=== PATIENT | female | born 1945 | race Two or more races ===

== ENCOUNTER 2019-01-23 03:09 | Inpatient (IN) | payer MEDICARE ==
[2019-01-22 20:00] VITALS: BP 153/90
[~2019-01-23] VITALS: Ht 144.8 cm; Wt 58.6 kg
[2019-01-23] VITALS (8 sets, daily range): BP systolic 141–182; BP diastolic 78–112
--- NOTE | 2019-01-23 03:21 | Emergency Room Report ---
History of Present Illness General Chief Complaint: Behavioral Complaint Source: Patient Present Illness HPI This is a 73-year-old female brought in by EMS with chief complaint of bizarre behavior. Was found to be walking in [place] in front of her house. Bystander called 911 because she was acting abnormal. She told him that she was dying. She was not making sense. So they called 911. On arrival, EMS said she was walking away from them. She refuses everything. Later on she started saying that she is sick. EMS said that when they took her house, it was packed with bunch of stuff. Look like a hoarding situation. Here she was actively trying to gag and throw up. She told me that she has herpes all over her body. She does not make sense. According to EMS, they had been on her before for her psychiatric issue. Patient denies taking any medication. No suicidal thoughts homicidal thought. Allergies: Coded Allergies: No Known Allergies (Unverified , 01/23/19) Patient History Past Medical History: see triage record, old chart reviewed, psych hx Past Surgical History: unable to obtain Family History: unable to obtain Social History: other Now: No Immunizations: other Reviewed Nursing Documentation: PMH: Agreed; PSxH: Agreed Review of Systems ENT: Denies: sore throat Cardiovascular: Denies: chest pain, palpitations Gastrointestinal/Abdominal: Denies: nausea, vomiting, diarrhea Musculoskeletal: Denies: back problems Skin: Denies: rash Neurological: Denies: FOWLER, seizures All Other Systems: negative except mentioned in HPI Physical Exam Vital Signs Date Time Temp Pulse Resp B/P (MAP) Pulse Ox O2 Delivery O2 Flow Rate FiO2 01/23/19 02:58 98.8 100 18 182/112 (135) 100 Room Air Vitals with high blood pressure Sp02 EP Interpretation: reviewed, normal General Appearance: alert/responsive, no apparent distress, non-toxic Head: normocephalic, atraumatic Eyes: PERRL, EOMI ENT: oropharynx normal Neck: supple/symm/no masses Respiratory: effort normal, no rhonchi, no wheezing Cardiovascular: no murmur, gallop, rub Gastrointestinal: non-tender, no mass, non-distended, no rebound/guarding, normal bowel sounds Musculoskeletal: gait & station normal Neurologic: oriented x3, sensory intact, motor strength/tone normal Psychiatric: other - Patient with flat affect. She appears to have tangential thoughts. Appear to be responding to internal stimuli. Suicide Risk Assessment: Suicidal Ideation: No Had intent to initiate attempt: No Pt's plan for suicide attempt: No Has means to complete attempt: No Skin: no rash, normal palpation Medical Decision Making Diagnostic Impression: Primary Impression: Behavioral disorder Additional Impressions: Encephalopathy acute Hypertension Qualified Codes: I10 - Essential (primary) hypertension Delirium ER Course This pt presents with altered mental status. I suspect that she has some underlying dementia and also psychiatric disorder. According to EMS, her place is packed with junk look like a hoarder. There is no focal deficit. CT scan here is unremarkable. She does have a urinary tract infection which probably make things worse. Her blood pressure elevated but no evidence of endorgan damage. Will admit for further work-up and social service consult. I contacted Dr. Mccarty for admission for Dr. Avila. Rhythm Strip Diag. Results EP Interpretation: yes Rate: 88 Rhythm: NSR, no PVC's, no ectopy CT/MRI/US Diagnostic Results CT/MRI/US Diagnostic Results : Imaging Test Ordered: Ct head Impression Neg per radiologist. Last Vital Signs Date Time Temp Pulse Resp B/P (MAP) Pulse Ox O2 Delivery O2 Flow Rate FiO2 01/23/19 02:58 98.8 100 18 182/112 (135) 100 Room Air Status: improved Disposition: ADMITTED INPATIENT Condition: Serious Joseph Blake MD Jan 23, 2019 03:21
[2019-01-23 03:44] LABS: BASOPHILS % (AUTO) 0.6 % (0.0-2.0); EOSINOPHILS % (AUTO) 0.6 % (0.0-3.0); HEMATOCRIT 45.3 % (37.0-47.0); HEMOGLOBIN 15.4 G/DL (12.0-16.0); LYMPHOCYTES % (AUTO) 21.4 % (20.0-45.0); MEAN CORPUSCULAR VOLUME 89 FL (80-99); MONOCYTES % (AUTO) 6.3 % (1.0-10.0); NEUTROPHILS % (AUTO) 71.1 % (45.0-75.0); PLATELET COUNT 264 K/UL (150-450); RED CELL DISTRIBUTION WIDTH 11.1 % (11.6-14.8); WHITE BLOOD COUNT 8.6 K/UL (4.8-10.8)
[2019-01-23 03:45] LABS: APPEARANCE,URINE CLOUDY; BILIRUBIN, URINE NEGATIVE (NEGATIVE); GLUCOSE, URINE (UA) NEGATIVE (NEGATIVE); KETONES,URINE 3+ (NEGATIVE); LEUKOCYTE ESTERASE ,URINE 2+ (NEGATIVE); NITRITE,URINE NEGATIVE (NEGATIVE); PH,URINE 5 (4.5-8.0); PROTEIN,URINE 2+ (NEGATIVE); UROBILINOGEN,URINE NORMAL MG/DL (0.0-1.0)
[2019-01-23 03:46] LABS: COLOR,URINE YELLOW
[2019-01-23 03:53] LABS: ANION GAP 11 mmol/L (5-15); BLOOD UREA NITROGEN 20 mg/dL (7-18); CALCIUM 10.5 MG/DL (8.5-10.1); CARBON DIOXIDE 27 MMOL/L (21-32); CHLORIDE 103 MMOL/L (98-107); CREATININE 0.9 MG/DL (0.55-1.30); POTASSIUM 3.5 MMOL/L (3.5-5.1); SODIUM 140 MMOL/L (136-145)
--- NOTE | 2019-01-23 04:12 | NUR ---
ED Nurse Note: PATIENT WAS MIAN [id number] [facility]. NEIGHBOR CALLED 911 BECAUSE PT WAS WALKING IN [place] AND DEMONSTRATING BIZARRE BEHAVIORS. PATIENT PRESENTED ANXIOUS, RESSTLESS, AAO X2, BP 188/112 OTHER VSS AT THIS TIME.
[2019-01-23] MEDS ORDERED: cefTRIAXone 1 GM in NS 55 ML IVPB ONE (05:00)
--- NOTE | 2019-01-23 05:59 | Diagnostic Imaging Report ---
EXAM: CT Head Without Intravenous Contrast CLINICAL HISTORY: AMS TECHNIQUE: Axial computed tomography images of the head brain without intravenous contrast. CTDI is 63 mGy and DLP is 1614 mGy-cm. One or more of the following dose reduction techniques were used: automated exposure control, adjustment of the mA and or kV according to patient size, use of iterative reconstruction technique. COMPARISON: None. FINDINGS: Brain: No acute intracranial hemorrhage. No mass effect or midline shift. No CT evidence of acute infarct. Chronic microangiopathic white matter disease. Ventricles: Unremarkable. No ventriculomegaly. Bones joints: Unremarkable. No acute fracture. Soft tissues: Unremarkable. Sinuses: Unremarkable as visualized. Mastoid air cells: Unremarkable as visualized. No mastoid effusion. IMPRESSION: No acute findings.
--- NOTE | 2019-01-23 06:03 | NUR ---
ED Nurse Note: Patient was admited to [facility] due to ALOC. Patient was transfered to the unit via gurney, with all belongings. AAO x1, VSS at this time, skin is dry warm to touch.
--- NOTE | 2019-01-23 06:15 | NUR ---
NURSE NOTES: Pt is admitted from ER with Dx of Altered Mental Status. Pt is awake, verbal and confused. Vitals stable. BP 159/96. Pt is very impulsive, pt has random thoughts. Pt has moments of clarity however. Pt is ambulatory. Pt's skin is intact, no signs of trauma. Head CT was done in the ER. Pt is oriented to the unit. Pt's belonging list verified, pt signed the sheet and refused to send valuables for safekeeping. Fall precaution In place. Bed alarm on. Bed locked low in position,side rails up and call light within reach. Pt instructed to call for assistance before getting out of bed. Dr. Avila will be called for admission orders. Pt will be monitored.
--- NOTE | 2019-01-23 06:30 | NUR ---
NURSE NOTES: Dr. Avila's exchanged is called and message left with SRI for doctor to call Back.
--- NOTE | 2019-01-23 06:45 | NUR ---
NURSE NOTES: Dr. Pearl called back with admission orders, Md is made aware of High blood pressure. Doctor ordered Norvasc and hydralazine PRN.
[2019-01-23] MEDS ORDERED: HydrALAZINE 25mg tab ORAL PRN (07:00)
--- NOTE | 2019-01-23 07:15 | NUR ---
HAND-OFF: Report given to ALEXANDER Carlin. Informed to carry out the admitting orders. Informed that pt is fall risk.
--- NOTE | 2019-01-23 08:00 | NUR ---
NURSE NOTES: received patient ambulating inside her bedroom. patient is confuse, denies pain or discomfort. LAC gauge 22 IV access, saline locked. Bed is locked at the lowest position possible, call light within easy reach, siderails up x2. Will continue to monitor patient and follow up with the plan of care.
[2019-01-23] MEDS: Heparin 5000 units/ml inj SUBQ SCH ×2 (10:11→22:22)
--- NOTE | 2019-01-23 10:15 | NUR ---
NURSE NOTES: patient went to the room across the hallway, and took 2 books from the patient in that room. patient refuses to return the book. Nurse told patient to go back to her room, and reoriented patient. Returned book to the optometrist president/practice owner.
--- NOTE | 2019-01-23 12:19 | NUR ---
CHARGE NURSE NOTE: Pt is very confused, unsteady,walking around unit, entering other pt's room, stealing some staff. Pt needs a sitter. was called, message left.
--- NOTE | 2019-01-23 13:49 | History and Physical ---
History of Present Illness General Date patient seen: Jan 23, 2019 Time patient seen: 13:00 Reason for Hospitalization: Behavioral Complaint Present Illness HPI 73-year-old female brought in by EMS with chief complaint of bizarre behavior. Was found to be walking in [place] in front of her house per EMS report. Bystander called 911 because she was acting abnormal. ( She told him that she was dying. She was not making sense ) So they called 911. On arrival, EMS said she was walking away from them. She refuses everything. Later on she started saying that she is sick. EMS said that when they took her house, it was packed with bunch of stuff. Look like a hoarding situation. In the ED she was actively trying to gag and throw up. She told the ED MD that she has herpes all over her body. She did not make sense. According to EMS, they had been on her before for her psychiatric issue which is unknown. Patient denies taking any medication. No suicidal thoughts homicidal thought and she was noted to have elevated SBP at 175/88 and abnormal UA with 5-10 wbc. Admission to medical floor was requested and she was started on antibiotics. Today, she was wondering the floors and reported to be taking things from patients rooms. She told me to have Herpes as well and no active blister lesions were seen. She reports smoking marijuana and denies being disoriented or ( too high ) last night. She reports to have a home and was able to tell me her address. When asked about her self care plan she does not have any answer. She denies pain, SI/HI/ nausea or emesis. She ate all her lunch and was noted to be using an IV pole as a cane which was safely removed from her and placed back where it belongs. Allergies: Uncoded Allergies: sulfa (Allergy, Unknown, UKN, 01/23/19) Pt reports allergies to Sulfa; unable to explain. Pt is confused Patient History History Provided By: Patient Healthcare decision maker Resuscitation status Full Code Advanced Directive on File Review of Systems All Other Systems: negative except mentioned in HPI Physical Exam General Appearance: WD/WN Lines, tubes and drains: peripheral HEENT: normocephalic, atraumatic Neck: non-tender, normal alignment Respiratory/Chest: chest wall non-tender, lungs clear Cardiovascular/Chest: normal rate, regular rhythm Abdomen: non tender, soft Extremities: normal range of motion, non-tender Skin Exam: normal pigmentation, other - some hyperpigmented areas on her legs noted. NO BLISTERS or wounds Neurologic: metal mockup maker II-XII grossly normal Last 24 Hour Vital Signs Date Time Temp Pulse Resp B/P (MAP) Pulse Ox O2 Delivery O2 Flow Rate FiO2 01/23/19 12:00 96.2 72 21 141/107 (118) 98 01/23/19 10:08 108 141/87 01/23/19 09:00 Room Air 01/23/19 08:00 96.2 108 21 141/87 (105) 98 01/23/19 06:31 Room Air 01/23/19 06:24 98.0 102 22 159/96 (117) 100 01/23/19 06:02 98.8 88 20 155/78 100 Room Air 01/23/19 05:56 98.8 20 175/88 100 Room Air 01/23/19 04:17 88 175/88 01/23/19 03:15 88 20 Room Air 01/23/19 03:15 98.8 20 182/112 100 Room Air 01/23/19 02:58 98.8 100 18 182/112 (135) 100 Room Air Laboratory Tests Test 01/23/19 03:30 White Blood Count 8.6 K/UL (4.8-10.8) Red Blood Count 5.10 M/UL (4.20-5.40) Hemoglobin 15.4 G/DL (12.0-16.0) Hematocrit 45.3 % (37.0-47.0) Mean Corpuscular Volume 89 FL (80-99) Mean Corpuscular Hemoglobin 30.2 PG (27.0-31.0) Mean Corpuscular Hemoglobin Concent 34.1 G/DL (32.0-36.0) Red Cell Distribution Width 11.1 % (11.6-14.8) L Platelet Count 264 K/UL (150-450) Mean Platelet Volume 5.9 FL (6.5-10.1) L Neutrophils (%) (Auto) 71.1 % (45.0-75.0) Lymphocytes (%) (Auto) 21.4 % (20.0-45.0) Monocytes (%) (Auto) 6.3 % (1.0-10.0) Eosinophils (%) (Auto) 0.6 % (0.0-3.0) Basophils (%) (Auto) 0.6 % (0.0-2.0) Urine Color Yellow Urine Appearance Cloudy Urine pH 5 (4.5-8.0) Urine Specific [place] 1.025 (1.005-1.035) Urine Protein 2+ (NEGATIVE) H Urine Glucose (UA) Negative (NEGATIVE) Urine Ketones 3+ (NEGATIVE) H Urine Blood 1+ (NEGATIVE) H Urine Nitrite Negative (NEGATIVE) Urine Bilirubin Negative (NEGATIVE) Urine Urobilinogen Normal MG/DL (0.0-1.0) Urine Leukocyte Esterase 2+ (NEGATIVE) H Urine RBC 2-4 /HPF (0 - 2) H Urine WBC 5-10 /HPF (0 - 2) H Urine Squamous Epithelial Cells Many /LPF (NONE/OCC) H Urine Bacteria Moderate /HPF (NONE) H Urine Mucus Moderate /LPF (NONE/OCC) H Sodium Level 140 MMOL/L (136-145) Potassium Level 3.5 MMOL/L (3.5-5.1) Chloride Level 103 MMOL/L (98-107) Carbon Dioxide Level 27 MMOL/L (21-32) Anion Gap 11 mmol/L (5-15) Blood Urea Nitrogen 20 mg/dL (7-18) H Creatinine 0.9 MG/DL (0.55-1.30) Estimat Glomerular Filtration Rate mL/min (>60) Glucose Level 143 MG/DL (74-106) H Calcium Level 10.5 MG/DL (8.5-10.1) H Urine Opiates Screen Negative (NEGATIVE) Urine Barbiturates Screen Negative (NEGATIVE) Phencyclidine (PCP) Screen Negative (NEGATIVE) Urine Amphetamines Screen Negative (NEGATIVE) Urine Benzodiazepines Screen Negative (NEGATIVE) Urine Cocaine Screen Negative (NEGATIVE) Urine Marijuana (THC) Screen Positive (NEGATIVE) H Height (Feet): 4 Height (Inches): 9.00 Weight (Pounds): 129 Medications Current Medications Medications (Trade) Dose Ordered Sig/John Route PRN Reason Start Time Stop Time Status Last Admin Dose Admin Amlodipine Besylate (Norvasc) 5 mg DAILY ORAL 01/23/19 09:00 02/22/19 08:59 01/23/19 10:08 Heparin Sodium (Porcine) (Heparin 5000 units/ml) 5,000 units EVERY 12 HOURS SUBQ 01/23/19 09:00 02/22/19 08:59 01/23/19 10:11 Hydralazine HCl (Apresoline) 25 mg Q6H PRN ORAL For High Blood Pressure 01/23/19 07:00 02/22/19 06:59 Assessment/Plan Status: stable Status Narrative 73 y Female who lives alone and was BIBA last night due to erratic behavior noted by her neighbor. # Altered mental status, metabolic vs infectious encephalopathy ddx include delirium vs cannabis intoxication vs underlying psychiatric disorder of unknown etiology vs UTI - Sitter ordered for safety - Psychiatry consultation - PRN Olanzapine # Hypertensive heart disease - Blood pressure management started # UTI - Ceftriaxone therapy - Follow up culture results # Safety and disposition - SW evaluation requested # Substance use - cannabis -SW requested for support and outpatient resources - Counselling completed today. # FULL CODE # DVT ppx - ambulatory # GI ppx with PPI Sadiq Thurston MD Jan 23, 2019 13:49
[2019-01-23] MEDS: OLANZapine 2.5mg tab ORAL PRN (17:31)
--- NOTE | 2019-01-23 19:12 | NUR ---
HAND-OFF: Report given to ALEXANDER Aguilera.
--- NOTE | 2019-01-23 19:15 | NUR ---
NURSE NOTES: RECEIVED PT FROM ALEXANDER CAGE. PT IS AWAKE, AAOX1, ON ROOM AIR, NO ACUTE DISTRESS NOTED. SKIN IS INTACT. IV ON LEFT AC IS INTACT AND PATENT. BED IS LOCKED AND LOW, BED ALARMS ACTIVE, SIDE RAILS UP X2, AND CALL LIGHT IS WITHIN REACH. WILL CONTINUE TO MONITOR.
[2019-01-24] VITALS: BP_SYST 157; BP_SYST 167; BP_DIAS 79
--- NOTE | 2019-01-24 | NUR ---
NURSE NOTES: Confirmed with Pharmacist Dakota that it is okay to give patient's 2200 dose of zyprexa. Addendum: 01/25/19 at 0039 by Bernadette Wilburn RN Wrong time charted
[2019-01-24 04:00] VITALS: BP 154/85
[2019-01-24] MEDS: cefTRIAXone 1gm/D5W 55ml IVPB SCH ×2 (05:57)
[2019-01-24 07:11] LABS: BASOPHILS % (AUTO) 0.6 % (0.0-2.0); HEMATOCRIT 41.4 % (37.0-47.0); HEMOGLOBIN 14.3 G/DL (12.0-16.0); LYMPHOCYTES % (AUTO) 28.1 % (20.0-45.0); MEAN CORPUSCULAR VOLUME 89 FL (80-99); MONOCYTES % (AUTO) 7.7 % (1.0-10.0); NEUTROPHILS % (AUTO) 62.6 % (45.0-75.0); PLATELET COUNT 273 K/UL (150-450); RED BLOOD COUNT 4.65 M/UL (4.20-5.40); RED CELL DISTRIBUTION WIDTH 10.6 % (11.6-14.8); WHITE BLOOD COUNT 7.9 K/UL (4.8-10.8)
--- NOTE | 2019-01-24 07:36 | NUR ---
NURSE NOTES: Patient received in stable condition, eating breakfast. Patient is confused. Breathing unlabored on room air. IV site on left arm patent and intact. Bed locked in lowest position, call light placed within reach. Will continue to monitor.
--- NOTE | 2019-01-24 07:52 | NUR ---
HAND-OFF: Report given to ALEXANDER HIDALGO.
[2019-01-24 07:56] LABS: ANION GAP 9 mmol/L (5-15); BLOOD UREA NITROGEN 25 mg/dL (7-18); CALCIUM 10.9 MG/DL (8.5-10.1); CARBON DIOXIDE 27 MMOL/L (21-32); CHLORIDE 106 MMOL/L (98-107); CREATININE 0.7 MG/DL (0.55-1.30); POTASSIUM 3.4 MMOL/L (3.5-5.1); SODIUM 142 MMOL/L (136-145)
[2019-01-24 08:00] VITALS: BP 157/86
[2019-01-24] MEDS: Heparin 5000 units/ml inj SUBQ SCH ×2 (08:20→21:29)
[2019-01-24 08:52] LABS: ALANINE AMINOTRANSFERASE 19 U/L (12-78); ALKALINE PHOSPHATASE 56 U/L (46-116); ASPARTATE AMINO TRANSFERASE 18 U/L (15-37); BILIRUBIN,DIRECT < 0.1 MG/DL (0.0-0.3); BILIRUBIN,TOTAL 0.5 MG/DL (0.2-1.0)
[2019-01-24 12:00] VITALS: BP 134/82
--- NOTE | 2019-01-24 13:04 | NUR ---
P.T Note: Order received, chart reviewed. Pt cleared for P.T evaluation and mobilization. Pt is alert, oriented to self/person but not to time and place , periodically confused however follows commands appropriately. Pt reports c/o generalized weakness, fatigue and L lower leg pain aggravate by touch/pressure and walking. Pt currently require MOD A X 1 for bed mobilities and transfers and MIN A X 1 for gait/ambulation activities using the FWW. Skilled P.T service is warranted to improve strength, balance and endurance to increase mobility independence and safety during stay. Recommend SNF for further rehab intervention at [place]. Pt is cleared for OOB activities using FWW with nursing assist. Addendum: 01/24/19 at 1317 by FLORENTINO KUMAR PT CORRECTION: THE ABOVE P.T NOTE IS A WRONG ENTRY. PLEASE DISREGARD , THANK YOU.
--- NOTE | 2019-01-24 15:25 | NUR ---
CASE MANAGEMENT: INITIAL REVIEW 73 YR OLD FEMALE BIBA FROM STREET CC: BEHAVIORAL COMPLAINT SI: ACUTE ENCEPHALOPATHY , HTN 98.7 100 18 182/112 100%RA BUN 20; BG 143 IS: ZYPREXA PO X1 IV ZOFRAN X1 IVF NS BOLUS X1 NORVASC PO X1 : 4E [facility]G UNIT DCP: HOME WHEN MEDICALLY CLEARED CASE MANAGEMENT: REVIEW 01/24/19 SI: ACUTE ENCEPHALOPATHY , HTN; UTI 98.2 64 20 157/109 96%RA BUN 25 IS: IV CEFTRIAXONE Q24HR HEPARIN SQ Q12HR K-DUR PO X1 ZYPREXA PO Q8/PRN NORVASC PO QD HYDRALAZINE Q6/PRN : 4E [facility]G UNIT DCP: HOME WHEN MEDICALLY CLEARED
[2019-01-24] MEDS: OLANZapine 2.5mg tab ORAL PRN (15:52)
[2019-01-24] MEDS: LORazepam 1mg tab ORAL PRN (15:52)
[2019-01-24 16:00] VITALS: BP 150/93
--- NOTE | 2019-01-24 18:16 | General Progress Note ---
Assessment/Plan Problem List: (1) Delirium ICD Codes: R41.0 - Disorientation, unspecified SNOMED: 8801734, 918787559 (2) Encephalopathy acute ICD Codes: G93.40 - Encephalopathy, unspecified SNOMED: 08744113, 317686585 (3) Hypertension ICD Codes: I10 - Essential (primary) hypertension SNOMED: 50653174, 928847724 Qualifiers: Qualified Codes: I10 - Essential (primary) hypertension (4) Behavioral disorder SNOMED: 801764093 (5) UTI (urinary tract infection) ICD Codes: N39.0 - Urinary tract infection, site not specified SNOMED: 28290752 Status: stable Assessment/Plan: 73 y Female who lives alone and was BIBA due to erratic behavior noted by her neighbor. # Altered mental status, metabolic vs infectious encephalopathy ddx include delirium vs cannabis intoxication vs underlying psychiatric disorder of unknown etiology vs UTI - Sitter ordered for safety - Psychiatry consultation - PRN Olanzapine -Continue Rocephin 1 g every 24 hours for a total of 3 to 5 days. -Follow-up urine culture # Essential Hypertension -Amlodipine 5 mg p.o. daily -Hydralazine 25 mg p.o. every 6 hours as needed # UTI, improving - Ceftriaxone therapy, plan for 3-5 days depending on clinical improvement - Follow up culture results # Safety and disposition - SW evaluation requested # Substance use - cannabis -SW requested for support and outpatient resources - Counselling completed today. FENPPX DVTPPX: heparin SBQ GI PPX: none needed Fluids: none Diet: regular Lines: peripheral PT/OT: pending Code status: Full Code Dispo: Home vs. SNF Reason for Continued Hospitalization: Encephalopathy 38 minutes spent on this encounter. Discussed with RN, patient, and psychiatry. > 50% spent on counseling and care coordination. Time of note may not reflect time patient was seen. Subjective Date patient seen: Jan 24, 2019 Constitutional: Denies: chills, diaphoresis, fever, malaise, weakness, other HEENT: Denies: eye pain, blurred vision, tearing, double vision, ear pain, ear discharge, nose pain, nose congestion, throat pain, throat swelling, mouth pain , mouth swelling, other Cardiovascular: Denies: chest pain, edema, irregular heart rate, lightheadedness, palpitations, syncope, other Respiratory: Denies: cough, orthopnea, shortness of breath, SOB with excertion , SOB at rest, sputum, stridor, wheezing, other Gastrointestinal/Abdominal: Denies: abdomen distended, abdominal pain, black stools, tarry stools, blood in stool, constipated, diarrhea, difficulty swallowing, nausea, poor appetite, poor fluid intake, rectal bleeding, vomiting , other Genitourinary: Denies: burning, discharge, frequency, flank pain, hematuria, incontinence, pain, urgency, other Neurologic/Psychiatric: Denies: anxiety, depressed, emotional problems, headache, numbness, paresthesia, pre-existing deficit, seizure, tingling, tremors, weakness, other Endocrine: Denies: excessive sweating, flushing, intolerance to cold, intolerance to heat, increased hunger, increased thirst, increased urine, unexplained weight gain, unexplained weight loss, other Hematologic/Lymphatic: Denies: anemia, easy bleeding, easy bruising, other Allergies: Uncoded Allergies: sulfa (Allergy, Unknown, UKN, 01/23/19) Pt reports allergies to Sulfa; unable to explain. Pt is confused Subjective No acute events overnight per nursing. Patient describes seeing flies that talk to her. She continues to be alert and oriented x2. She states that her dysuria has improved. She denies any fevers chills cough chest pain shortness of breath. Continues to state that she has "herpes" all over her body Objective Last 24 Hour Vital Signs Date Time Temp Pulse Resp B/P (MAP) Pulse Ox O2 Delivery O2 Flow Rate FiO2 01/24/19 16:00 97.9 85 20 150/93 (112) 97 01/24/19 12:00 98.1 97 18 134/82 (99) 95 01/24/19 09:00 Room Air 01/24/19 08:18 93 154/85 01/24/19 08:00 96.4 64 20 157/86 (109) 96 01/24/19 04:00 98.2 93 17 154/85 (108) 100 01/24/19 00:00 98.5 103 19 157/79 (105) 96 01/23/19 21:00 Room Air 01/23/19 20:00 97.5 113 20 153/90 (111) 96 01/23/19 19:33 162/86 Intake and Output 10/20/19 10/21/19 19:00 07:00 Intake Total 960 ml 110 ml Balance 960 ml 110 ml Intake Oral 960 ml IV Total 110 ml # Voids 6 2 Laboratory Tests 01/24/19 05:10: White Blood Count 7.9, Red Blood Count 4.65, Hemoglobin 14.3, Hematocrit 41.4, Mean Corpuscular Volume 89, Mean Corpuscular Hemoglobin 30.8, Mean Corpuscular Hemoglobin Concent 34.6, Red Cell Distribution Width 10.6L, Platelet Count 273, Mean Platelet Volume 6.3L, Neutrophils (%) (Auto) 62.6, Lymphocytes (%) (Auto) 28.1, Monocytes (%) (Auto) 7.7, Eosinophils (%) (Auto) 1.0, Basophils (%) (Auto ) 0.6, Sodium Level 142, Potassium Level 3.4L, Chloride Level 106, Carbon Dioxide Level 27, Anion Gap 9, Blood Urea Nitrogen 25H, Creatinine 0.7, Estimat Glomerular Filtration Rate , Glucose Level 115H, Calcium Level 10.9H, Total Bilirubin 0.5, Direct Bilirubin < 0.1, Aspartate Amino Transf (AST/SGOT) 18, Alanine Aminotransferase (ALT/SGPT) 19, Alkaline Phosphatase 56, Total Protein 7.6, Albumin 4.0, Thyroid Stimulating Hormone (TSH) 2.213 Height (Feet): 4 Height (Inches): 9.00 Weight (Pounds): 129 General Appearance: WD/WN, no apparent distress, alert EENT: PERRL/EOMI, normal ENT inspection Neck: non-tender, normal alignment, supple Cardiovascular: normal peripheral pulses, normal rate, no JVD Respiratory/Chest: chest wall non-tender, lungs clear, normal breath sounds Abdomen: normal bowel sounds, non tender, soft, no organomegaly, no mass Extremities: normal range of motion, non-tender, normal inspection Edema: other - No lower extremity edema bilaterally Romel Cortez D.O. Jan 24, 2019 18:16
--- NOTE | 2019-01-24 19:09 | NUR ---
HAND-OFF: Report given to Jareku RN.
--- NOTE | 2019-01-24 19:34 | NUR ---
NURSE NOTES: Received report from ALEXANDER Kern. Patient asleep. Breathing unlabored without distress, discomfort, or sob on room air. No s/s of pain noted at this time. IV noted on left antecubital intact. Bed placed at the lowest with alarm, brake, siderails up for safety. Call light placed within reach. Will continue to monitor.
[2019-01-24 20:00] VITALS: BP 130/68
--- NOTE | 2019-01-24 21:28 | NUR ---
NURSE NOTES: Confirmed with Pharmacist Dakota that it is okay to give patient's 2200 dose of zyprexa.
[2019-01-24] MEDS: OLANZapine 2.5mg tab ORAL SCH (21:30)
[2019-01-25] VITALS: BP 146/61
--- NOTE | 2019-01-25 00:40 | NUR ---
HAND-OFF: Report given to ALEXANDER Armijo.
--- NOTE | 2019-01-25 00:41 | NUR ---
NURSE NOTES: Received report from ALEXANDER Fleming. Patient asleep, respirations unlabored. Bed in low position, locked, side rails up x2, call light within reach. Will continue to monitor.
[2019-01-25 04:00] VITALS: BP 127/74
[2019-01-25] MEDS: OLANZapine 2.5mg tab ORAL SCH ×2 (05:24→14:00)
[2019-01-25] MEDS: cefTRIAXone 1gm/D5W 55ml IVPB SCH ×2 (05:24)
--- NOTE | 2019-01-25 07:20 | NUR ---
HAND-OFF: Report given to ALEXANDER Chen. Patient sleeping.
[2019-01-25 07:27] LABS: EOSINOPHILS % (AUTO) 2.5 % (0.0-3.0); HEMATOCRIT 38.4 % (37.0-47.0); HEMOGLOBIN 12.9 G/DL (12.0-16.0); LYMPHOCYTES % (AUTO) 26.6 % (20.0-45.0); MEAN CORPUSCULAR VOLUME 90 FL (80-99); MONOCYTES % (AUTO) 8.5 % (1.0-10.0); NEUTROPHILS % (AUTO) 61.4 % (45.0-75.0); PLATELET COUNT 207 K/UL (150-450); RED BLOOD COUNT 4.25 M/UL (4.20-5.40); RED CELL DISTRIBUTION WIDTH 11.6 % (11.6-14.8); WHITE BLOOD COUNT 5.6 K/UL (4.8-10.8)
--- NOTE | 2019-01-25 07:32 | NUR ---
NURSE NOTES: Patient sleeping in bed. Breathing even and unlabored on room air. No signs of apparent distress observed. Bed locked in lowest position, call light placed within reach. Will continue to monitor.
[2019-01-25 07:53] LABS: ANION GAP 8 mmol/L (5-15); BLOOD UREA NITROGEN 23 mg/dL (7-18); CALCIUM 10.3 MG/DL (8.5-10.1); CARBON DIOXIDE 28 MMOL/L (21-32); CHLORIDE 107 MMOL/L (98-107); CREATININE 0.7 MG/DL (0.55-1.30); PHOSPHORUS 3.5 MG/DL (2.5-4.9); POTASSIUM 3.7 MMOL/L (3.5-5.1); SODIUM 143 MMOL/L (136-145)
[2019-01-25 08:00] VITALS: BP 142/88
--- NOTE | 2019-01-25 08:30 | Consultation ---
DATE OF CONSULTATION: 01/24/2019 HISTORY OF PRESENT ILLNESS: The patient is a 73-year-old female with a history of multiple medical issues who has been admitted to the hospital due to behavior complaint and altered mental status. The patient is depressed, presents with anhedonia, worthlessness, hopelessness, decreased energy, anxiety, agitation. The patient has been having suicidal thoughts. She stated that she would like to go to a place that was taking care of her for more behavioral issues. The patient has low energy, insomnia, has not been eating. PAST PSYCHIATRIC HISTORY: Depression and anxiety. PAST MEDICAL HISTORY: Significant for hypertension and encephalopathy. ALLERGIES: Sulfa. SUBSTANCE ABUSE HISTORY: No known history of illicit drug use or alcohol; however her urine toxicology came back for marijuana. MENTAL STATUS EXAMINATION: The patient is alert and oriented times self, place, and situation. Mood is agitated. Affect is flat. Thought process, there is a paucity of thought content. Thought content, no suicidal or homicidal ideation. Cognition is intact. Insight and judgment is fair. ASSESSMENT: Sidney I Major depressive disorder. Sidney II Deferred. Sidney III Hypertension. Sidney IV Low. Sidney V 50 PLAN: The patient will be started on Lexapro 10 mg in the morning. HISTORY OF PRESENT ILLNESS: The patient is a 73-year-old female with a history of hypertension who has been admitted to the hospital due to altered mental status. The patient started being confused with bizarre behavior, responding to internal stimuli and easily agitated. She is not able to provide any meaningful information, does not know where she is nor the date. The patient is wandering around the unit and stealing items from different patient's room. PAST PSYCHIATRIC HISTORY: Unknown. The patient is unable to provide any history. PAST MEDICAL HISTORY: Hypertension. ALLERGIES: Sulfa. SUBSTANCE ABUSE HISTORY: Positive for marijuana. MENTAL STATUS EXAMINATION: The patient is alert and oriented times self. She is disoriented and confused, responding to internal stimuli. Mood is agitated. Affect is flat. Thought process is disorganized. Thought content, positive for delusions. Insight and judgment is poor. ASSESSMENT: Sidney I Cannabis abuse rule out cannabis induced psychosis. Acute toxic encephalopathy . Sidney II Deferred. Sidney III Hypertension. UTI. Sidney IV Low. Sidney V 20 PLAN: 1. The patient will be started on Zyprexa 5 mg t.i.d. and Ativan 2 mg p.r.n. 2. The patient to be discharged when medically cleared. Douglas Dsouza M.D. DR: June JOB#: [id number] CC:
[2019-01-25] MEDS: LORazepam 1mg tab ORAL PRN (09:06)
[2019-01-25] MEDS: Heparin 5000 units/ml inj SUBQ SCH ×2 (09:15→21:00)
[2019-01-25] MEDS ORDERED: Acetaminophen 500mg (ES) tab ORAL PRN (11:30)
[2019-01-25 12:00] VITALS: BP 137/66
--- NOTE | 2019-01-25 12:24 | General Progress Note ---
Assessment/Plan Problem List: (1) Delirium ICD Codes: R41.0 - Disorientation, unspecified SNOMED: 6334763, 938471717 (2) Encephalopathy acute ICD Codes: G93.40 - Encephalopathy, unspecified SNOMED: 32278209, 376989902 (3) Hypertension ICD Codes: I10 - Essential (primary) hypertension SNOMED: 16392747, 014874673 Qualifiers: Qualified Codes: I10 - Essential (primary) hypertension (4) Behavioral disorder SNOMED: 994628377 (5) UTI (urinary tract infection) ICD Codes: N39.0 - Urinary tract infection, site not specified SNOMED: 75012563 Status: stable Assessment/Plan: 73 y Female who lives alone and was BIBA due to erratic behavior noted by her neighbor. # Altered mental status, metabolic vs infectious encephalopathy. Suspect possible acute psychiatric disorder ddx include delirium vs cannabis intoxication vs underlying psychiatric disorder of unknown etiology vs UTI - Sitter ordered for safety - Psychiatry consultation - Olanzapine 2.5mg PO Q8hrs - PRN Olanzapine 2.5mg PO Q8hrs for agitation -Continue Rocephin 1 g every 24 hours for a total of 5 days as below # Essential Hypertension, improved -Amlodipine 5 mg p.o. daily -Hydralazine 25 mg p.o. every 6 hours as needed # E. Coli UTI, improving - Ceftriaxone therapy, plan for 5 days depending on clinical improvement - day 2 - Follow up culture results #hypercalcemia - check PTH - check vitamin D 25 OH - continue to monitor - 1L NS over 10hours # Safety and disposition - SW evaluation requested # Substance use - cannabis -SW requested for support and outpatient resources - Counselling completed today. FENPPX DVTPPX: heparin SBQ GI PPX: none needed Fluids: 1L NS over 10 hours Diet: regular Lines: peripheral PT/OT: pending Code status: Full Code Dispo: Home vs. SNF Reason for Continued Hospitalization: Encephalopathy vs. acute psychosis 40 minutes spent on this encounter. Discussed with RN, and patient. > 50% spent on counseling and care coordination. Time of note may not reflect time patient was seen. Subjective Date patient seen: Jan 25, 2019 Constitutional: Denies: chills, diaphoresis, fever, malaise, weakness, other HEENT: Denies: eye pain, blurred vision, tearing, double vision, ear pain, ear discharge, nose pain, nose congestion, throat pain, throat swelling, mouth pain , mouth swelling, other Cardiovascular: Denies: chest pain, edema, irregular heart rate, lightheadedness, palpitations, syncope, other Respiratory: Denies: cough, orthopnea, shortness of breath, SOB with excertion , SOB at rest, sputum, stridor, wheezing, other Gastrointestinal/Abdominal: Denies: abdomen distended, abdominal pain, black stools, tarry stools, blood in stool, constipated, diarrhea, difficulty swallowing, nausea, poor appetite, poor fluid intake, rectal bleeding, vomiting , other Genitourinary: Denies: burning, discharge, frequency, flank pain, hematuria, incontinence, pain, urgency, other Neurologic/Psychiatric: Denies: anxiety, depressed, emotional problems, headache, numbness, paresthesia, pre-existing deficit, seizure, tingling, tremors, weakness, other Endocrine: Denies: excessive sweating, flushing, intolerance to cold, intolerance to heat, increased hunger, increased thirst, increased urine, unexplained weight gain, unexplained weight loss, other Hematologic/Lymphatic: Denies: anemia, easy bleeding, easy bruising, other Allergies: Uncoded Allergies: sulfa (Allergy, Unknown, [facility], 01/23/19) Pt reports allergies to Sulfa; unable to explain. Pt is confused Subjective No acute events overnight per nursing. Patient continues to say that there are flies in the room that are talking to her. She was seen by psychiatry yesterday and started on scheduled Zyprexa. She is more sleepy today. But arousable. She continues to be alert and oriented x2. She states that her dysuria has improved. She denies any fevers chills cough chest pain shortness of breath. Continues to state that she has "herpes" all over her body Objective Last 24 Hour Vital Signs Date Time Temp Pulse Resp B/P (MAP) Pulse Ox O2 Delivery O2 Flow Rate FiO2 01/25/19 09:06 102 142/88 01/25/19 09:00 Room Air 01/25/19 08:00 97.9 102 18 142/88 (106) 98 01/25/19 04:00 98.0 72 18 127/74 (91) 96 01/25/19 00:00 98.0 60 18 146/61 (89) 93 01/24/19 21:00 Room Air 01/24/19 20:00 97.6 75 20 130/68 (88) 96 01/24/19 16:00 97.9 85 20 150/93 (112) 97 Intake and Output 01/24/19 01/25/19 19:00 07:00 Intake Total 850 ml 240 ml Balance 850 ml 240 ml Intake Oral 850 ml 240 ml # Voids 7 4 Laboratory Tests 01/25/19 05:25: White Blood Count 5.6, Red Blood Count 4.25, Hemoglobin 12.9, Hematocrit 38.4, Mean Corpuscular Volume 90, Mean Corpuscular Hemoglobin 30.3, Mean Corpuscular Hemoglobin Concent 33.6, Red Cell Distribution Width 11.6, Platelet Count 207, Mean Platelet Volume 6.3L, Neutrophils (%) (Auto) 61.4, Lymphocytes (%) (Auto) 26.6, Monocytes (%) (Auto) 8.5, Eosinophils (%) (Auto) 2.5, Basophils (%) (Auto ) 1.0, Sodium Level 143, Potassium Level 3.7, Chloride Level 107, Carbon Dioxide Level 28, Anion Gap 8, Blood Urea Nitrogen 23H, Creatinine 0.7, Estimat Glomerular Filtration Rate , Glucose Level 85, Calcium Level 10.3H, Phosphorus Level 3.5, Magnesium Level 1.8, Vitamin D 25-Hydroxy [Pending], 25-Hydroxy Vitamin D2 [Pending], 25-Hydroxy Vitamin D3 [Pending] 01/25/19 05:55: Calcium (Send out) [Pending], Parathyroid Hormone (Intact) [Pending] Height (Feet): 4 Height (Inches): 9.00 Weight (Pounds): 129 General Appearance: WD/WN, no apparent distress, alert, other - Sleepy EENT: PERRL/EOMI, normal ENT inspection Neck: non-tender, normal alignment, supple Cardiovascular: normal peripheral pulses, normal rate, regular rhythm, no JVD Respiratory/Chest: chest wall non-tender, lungs clear, normal breath sounds Abdomen: normal bowel sounds, non tender, soft Extremities: normal range of motion, non-tender, normal inspection Edema: other - No lower extremity edema bilaterally 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 No herpetic lesions seen Romel Cortez D.O. Jan 25, 2019 12:24
--- NOTE | 2019-01-25 14:27 | NUR ---
Social Service Note SW attempted to meet with patient yesterday and again today. Yesterday patient wouldn't respond to questions regarding next of kin or an emergency contact. Patient became slightly agitated but was easily redirected. SW attempted to meet with patient today and patient wouldn't wake up when name was called. SW discussed with charge nurse who will informed SW once patient is awake. SW contacted missing persons and yesterday patient was not reported however today patient was reported missing by her friend Chaim Singh [phone]. SW spoke with Chaim and patient doesn't have family that he is aware of. Chaim has been patient's friend for several years. Chaim lives in [place] and only speaks with patient on the phone on a regular basis. Over the past 8 years Chaim states patient has been hospitalized in a psych facility about 5 times. Chaim is unaware of patient's diagnosis but believes patient might be off her medication and require psychiatric in patient care. Chaim also states patient has been resistant in the past to leaving her home and placement in an assisted living and obtaining caregiver support. Chaim is unaware of financial resources. Patient may require referral to [facility]. At this time due to patient mental status patient appears unsafe to return home. APS report completed [phone] file#[id number].
[2019-01-25] MEDS ORDERED: OLANZapine 2.5mg tab ORAL PRN (15:30)
[2019-01-25 16:00] VITALS: BP 144/91
--- NOTE | 2019-01-25 19:10 | NUR ---
HAND-OFF: Report given to Jareku RN.
--- NOTE | 2019-01-25 19:17 | NUR ---
NURSE NOTES: Received report from ALEXANDER Kern. Patient asleep. Breathing unlabored without distress, discomfort, or sob on room air. No s/s of pain noted at this time. No IV access, MD aware. Call light placed within reach. Will continue to monitor. Addendum: 01/25/19 at 1920 by Bernadette Wilburn RN Bed placed at the lowest with alarm, brake, and siderails up for safety.
[2019-01-25 20:00] VITALS: BP 134/70
--- NOTE | 2019-01-25 21:00 | Progress Note ---
DATE: 01/25/2019 SUBJECTIVE: The patient is doing well. No behavioral issues noted. Doing better on Zyprexa. The patient is confused and disoriented. MENTAL STATUS EXAMINATION: The patient is asleep and arousable. Continues to be confused. Mood is anxious. Affect is flat. Thought process is concrete. Thought content, no suicidal or homicidal ideations. ASSESSMENT: 1. Cannabis abuse. 2. Rule out cannabis-induced psychosis. PLAN: The patient's Zyprexa will be changed from a standing to p.r.n. Douglas Dsouza M.D. DR: GERALD JOB#: [id number] CC:
--- NOTE | 2019-01-25 22:16 | NUR ---
NURSE NOTES: Attempted multiple times to explain and encourage patient to take 2100 medication heparin. Explain the purpose of the medication but patient continued to refuse medication saying "not right now". Will continue to monitor patient.
[2019-01-26] VITALS: BP 121/66
[2019-01-26] MEDS: Cephalexin 500mg cap ORAL SCH ×3 (00:46→20:30)
[2019-01-26] MEDS: LORazepam 1mg tab ORAL PRN ×2 (02:36→09:08)
[2019-01-26 04:00] VITALS: BP 133/70
--- NOTE | 2019-01-26 07:30 | NUR ---
NURSE NOTES: Received pt from MINSU RN. Pt is forgetful and orient x2. pt is in RA, No SOB or acute respiratory distress noted. pt has no IV access, MD ALLEN is aware. Pt is eating breakfast independently. all needs attended, bed is locked and is in the lowest position, call light within easy reach, will continue to monitor.
--- NOTE | 2019-01-26 07:44 | NUR ---
HAND-OFF: Report given to ALEXANDER Gibson.
[2019-01-26 07:56] LABS: BASOPHILS % (AUTO) 1.1 % (0.0-2.0); HEMATOCRIT 38.4 % (37.0-47.0); LYMPHOCYTES % (AUTO) 25.4 % (20.0-45.0); MEAN CORPUSCULAR VOLUME 90 FL (80-99); MONOCYTES % (AUTO) 6.9 % (1.0-10.0); NEUTROPHILS % (AUTO) 63.7 % (45.0-75.0); PLATELET COUNT 198 K/UL (150-450); RED BLOOD COUNT 4.25 M/UL (4.20-5.40); RED CELL DISTRIBUTION WIDTH 11.3 % (11.6-14.8); WHITE BLOOD COUNT 4.4 K/UL (4.8-10.8)
[2019-01-26 08:00] VITALS: BP 127/89
[2019-01-26 08:25] LABS: ALANINE AMINOTRANSFERASE 16 U/L (12-78); ALBUMIN 3.3 G/DL (3.4-5.0); ALKALINE PHOSPHATASE 47 U/L (46-116); ANION GAP 7 mmol/L (5-15); ASPARTATE AMINO TRANSFERASE 13 U/L (15-37); BILIRUBIN,TOTAL 0.5 MG/DL (0.2-1.0); BLOOD UREA NITROGEN 16 mg/dL (7-18); CALCIUM 10.2 MG/DL (8.5-10.1); CARBON DIOXIDE 28 MMOL/L (21-32); CHLORIDE 108 MMOL/L (98-107); CREATININE 0.7 MG/DL (0.55-1.30); POTASSIUM 3.8 MMOL/L (3.5-5.1); SODIUM 143 MMOL/L (136-145)
[2019-01-26] MEDS: Heparin 5000 units/ml inj SUBQ SCH ×2 (09:08→20:36)
--- NOTE | 2019-01-26 11:35 | NUR ---
CASE MANAGEMENT: REVIEW 01/26/19 SI: DELIRIUM; ACUTE ENCEPHALOPATHY , HTN; UTI 98.8 82 18 127/89 97%RA IS: IVF NS @75HR KEFLEX PO BID HEPARIN SQ Q12HR ZYPREXA PO Q8/PRN NORVASC PO QD HYDRALAZINE Q6/PRN : 4E MED SURG UNIT DCP: HOME WHEN MEDICALLY CLEARED
[2019-01-26 12:00] VITALS: BP 137/67
[2019-01-26 16:00] VITALS: BP 148/74
--- NOTE | 2019-01-26 16:04 | NUR ---
Social Service Note Patient's niece called Rere Crawley [phone]. SHIV left a message for niece. SHIV will notify
--- NOTE | 2019-01-26 17:32 | General Progress Note ---
Assessment/Plan Problem List: (1) Delirium ICD Codes: R41.0 - Disorientation, unspecified SNOMED: 8624216, 061442315 (2) Encephalopathy acute ICD Codes: G93.40 - Encephalopathy, unspecified SNOMED: 11333337, 089090394 (3) Hypertension ICD Codes: I10 - Essential (primary) hypertension SNOMED: 17619389, 993529975 Qualifiers: Qualified Codes: I10 - Essential (primary) hypertension (4) Behavioral disorder SNOMED: 489411163 (5) UTI (urinary tract infection) ICD Codes: N39.0 - Urinary tract infection, site not specified SNOMED: 92624682 Status: stable Assessment/Plan: 73 y Female who lives alone and was BIBA due to erratic behavior noted by her neighbor. # Altered mental status, metabolic vs infectious encephalopathy. Suspect possible acute psychiatric disorder. Unable to care for herself ddx include delirium vs cannabis intoxication vs underlying psychiatric disorder of unknown etiology vs UTI - Sitter ordered for safety - Appreciate Psychiatry recommendations: Dr. Dsouza - Olanzapine 2.5mg PO Q8hrs - PRN Olanzapine 2.5mg PO Q8hrs for agitation -Continue Rocephin 1 g every 24 hours for a total of 5 days as below # Essential Hypertension, controlled -Amlodipine 5 mg p.o. daily -Hydralazine 25 mg p.o. every 6 hours as needed # E. Coli UTI, improving - Ceftriaxone therapy, plan for 5 days depending on clinical improvement. Switch to Keflex 500 mg p.o. every 12 hours- day 3 #hypercalcemia > PTH - normal - check vitamin D 25 OH - check PTHRP - continue to monitor -Continue IV fluids -Discussed with nephrology. Recommended calcitonin intranasal daily # Safety and disposition - SW evaluation requested # Substance use - cannabis -SW requested for support and outpatient resources - Counselling completed today. FENPPX DVTPPX: heparin SBQ GI PPX: none needed Fluids: IV fluids Diet: regular Lines: peripheral PT/OT: pending Code status: Full Code Dispo: Home vs. SNF Reason for Continued Hospitalization: Encephalopathy vs. acute psychosis Review and/or order of clinical lab test (1): BMP, CBC tomorrow Review and/or order of tests in radiology section (1): N/A Review and/or order of tests in medicine (1): N/A Discussion of test results with performing physician (1): Decision to obtain old records or obtain history from other than patient (1): yes, per psychologist social patient has a psychiatric history per question with her neighbor. Discussion with another healthcare provider, review of old records, obtained history from other source (2): Nephrology, psychiatry Independent visualization of image tracing or specimen (2): 37 minutes spent on this encounter. Discussed with RN, nephrology, psychiatry, and patient. > 50% spent on counseling and care coordination. Time of note may not reflect time patient was seen. Subjective Date patient seen: Jan 26, 2019 ROS Limited/Unobtainable: Yes - Patient refusing to answer questions. Allergies: Coded Allergies: SULFA (SULFONAMIDE ANTIBIOTICS) (Unverified Allergy, Unknown, 01/26/19) Uncoded Allergies: sulfa (Allergy, Unknown, [facility]N, 01/23/19) Pt reports allergies to Sulfa; unable to explain. Pt is confused Subjective No acute events overnight per nursing. Patient continues to endorse that he hears supplies talking to her and has herpes all over her body . She does feel better overall. She endorses today that she used to take all kinds of psychiatric medications. Does deny SI and HI. Objective Last 24 Hour Vital Signs Date Time Temp Pulse Resp B/P (MAP) Pulse Ox O2 Delivery O2 Flow Rate FiO2 01/26/19 16:00 97.7 84 20 148/74 (98) 96 01/26/19 12:00 98.8 81 19 137/67 (90) 98 01/26/19 09:07 82 127/89 01/26/19 09:00 Room Air 01/26/19 08:00 98.8 82 18 127/89 (102) 97 01/26/19 04:00 98.0 73 18 133/70 (91) 94 01/26/19 00:00 97.8 80 20 121/66 (84) 96 01/25/19 21:00 Room Air 01/25/19 20:00 99.5 81 18 134/70 (91) 98 Intake and Output 01/25/19 01/26/19 19:00 07:00 Intake Total 250 ml 120 ml Balance 250 ml 120 ml Intake Oral 250 ml 120 ml # Voids 5 2 Laboratory Tests 01/26/19 07:30: White Blood Count 4.4L, Red Blood Count 4.25, Hemoglobin 13.0, Hematocrit 38.4, Mean Corpuscular Volume 90, Mean Corpuscular Hemoglobin 30.6, Mean Corpuscular Hemoglobin Concent 33.8, Red Cell Distribution Width 11.3L, Platelet Count 198, Mean Platelet Volume 6.0L, Neutrophils (%) (Auto) 63.7, Lymphocytes (%) (Auto) 25.4, Monocytes (%) (Auto) 6.9, Eosinophils (%) (Auto) 3.0, Basophils (%) (Auto ) 1.1, Sodium Level 143, Potassium Level 3.8, Chloride Level 108H, Carbon Dioxide Level 28, Anion Gap 7, Blood Urea Nitrogen 16, Creatinine 0.7, Estimat Glomerular Filtration Rate , Glucose Level 93, Calcium Level 10.2H, Total Bilirubin 0.5, Aspartate Amino Transf (AST/SGOT) 13L, Alanine Aminotransferase ( ALT/SGPT) 16, Alkaline Phosphatase 47, Total Protein 6.5, Albumin 3.3L, Globulin 3.2, Albumin/Globulin Ratio 1.0, Parathyroid Hormone Related Protein [ Pending] Height (Feet): 4 Height (Inches): 9.00 Weight (Pounds): 129 General Appearance: WD/WN, no apparent distress, alert, other - Sleeping EENT: PERRL/EOMI, normal ENT inspection Neck: non-tender, normal alignment, supple Cardiovascular: normal peripheral pulses, normal rate, regular rhythm, no JVD Respiratory/Chest: chest wall non-tender, lungs clear, normal breath sounds Abdomen: normal bowel sounds, non tender, soft Extremities: other - No lower extremity edema bilaterally Neurologic: shirt maker II-XII grossly normal, no motor/sensory deficits, alert, oriented x 3, other - Tangential thinking Skin: other - No rashes lesions or ulcers seen Romel Cortez D.O. Jan 26, 2019 17:32
--- NOTE | 2019-01-26 19:35 | NUR ---
NURSE NOTES: Report taken from ALEXANDER Gibson. patient is asleep and in bed, arousable to light shaking. A&Ox2, knows who she is and where she is. No signs of distress on room air. No complaints of pain. IV site c/d/i and patent. Patient is high fall risk, rencourgae use of call alvares. Bed in lowest position, call light withn reach.
--- NOTE | 2019-01-26 19:36 | NUR ---
HAND-OFF: Report given to JULIANO MUNOZ.Pt is awake and stable.
[2019-01-26 20:00] VITALS: BP 135/64
[2019-01-27] VITALS: BP 132/68
--- NOTE | 2019-01-27 03:24 | NUR ---
NURSE NOTES: Received pt from [facility] to continue care. AAO x 2, on room air. Ambulatory with unsteady gait. IV site intact and running NS 75cc/hr. No c/o pain, no acute distress noted. Bed locked, alarm on, side rails up x 2, call light within reach. Will continue to monitor.
--- NOTE | 2019-01-27 03:35 | NUR ---
HAND-OFF: Report given to ALEXANDER Tinoco.
[2019-01-27 04:00] VITALS: BP_SYST 123; BP_SYST 143; BP_DIAS 53; BP_DIAS 75
[2019-01-27] MEDS: traMADol 50mg tab ORAL PRN (04:38)
[2019-01-27 07:08] LABS: ANION GAP 6 mmol/L (5-15); BLOOD UREA NITROGEN 12 mg/dL (7-18); CALCIUM 9.9 MG/DL (8.5-10.1); CARBON DIOXIDE 26 MMOL/L (21-32); CHLORIDE 107 MMOL/L (98-107); CREATININE 0.6 MG/DL (0.55-1.30); PHOSPHORUS 2.2 MG/DL (2.5-4.9); POTASSIUM 4.3 MMOL/L (3.5-5.1); SODIUM 139 MMOL/L (136-145)
--- NOTE | 2019-01-27 07:25 | NUR ---
HAND-OFF: Report given to ALEXANDER Gibson.
--- NOTE | 2019-01-27 07:31 | NUR ---
NURSE NOTES: Received pt from BRAYDON MUNOZ. Pt is forgetful and orient x2. pt is in RA, No SOB or acute respiratory distress noted. pt has intact IV access LFA 22G is running well. Pt is eating breakfast independently. all needs attended, bed is locked and is in the lowest position, call light within easy reach, will continue to monitor.
[2019-01-27 08:00] VITALS: BP 143/74
[2019-01-27] MEDS: Heparin 5000 units/ml inj SUBQ SCH ×2 (09:00→21:00)
[2019-01-27] MEDS: LORazepam 1mg tab ORAL PRN ×2 (09:15→17:03)
[2019-01-27] MEDS: Cephalexin 500mg cap ORAL SCH ×2 (09:16→21:00)
[2019-01-27] MEDS ORDERED: Sodium Phosphate 30 MM in NS 275 ML IVPB ONE (11:00)
--- NOTE | 2019-01-27 11:22 | NUR ---
CASE MANAGEMENT: REVIEW 01/27/19 SI: DELIRIUM; ACUTE ENCEPHALOPATHY , HTN; UTI 98.8 71 18 131/87 96%RA URIC ACID 7.8 IS: IVF NS @75HR IV SODIUM PHOSPHATE/ NS X1 KEFLEX PO BID HEPARIN SQ Q12HR ZYPREXA PO Q8/PRN NORVASC PO QD HYDRALAZINE Q6/PRN ATIVAN PO Q6HR/PRN : 4E MED SURG UNIT DCP: HOME WHEN MEDICALLY CLEARED PLAN: PSYC EVAL
[2019-01-27 12:00] VITALS: BP 131/73
--- NOTE | 2019-01-27 12:23 | General Progress Note ---
Assessment/Plan Problem List: (1) Delirium ICD Codes: R41.0 - Disorientation, unspecified SNOMED: 2265859, 951804783 (2) Encephalopathy acute ICD Codes: G93.40 - Encephalopathy, unspecified SNOMED: 52598872, 275663226 (3) Hypertension ICD Codes: I10 - Essential (primary) hypertension SNOMED: 03579422, 243849063 Qualifiers: Qualified Codes: I10 - Essential (primary) hypertension (4) Behavioral disorder SNOMED: 516172568 (5) UTI (urinary tract infection) ICD Codes: N39.0 - Urinary tract infection, site not specified SNOMED: 41047165 Status: stable Assessment/Plan: 73 y Female who lives alone and was BIBA due to erratic behavior noted by her neighbor. # Altered mental status 2/2 acute psychiatry disorder. Suspect possible acute psychiatric disorder. Unable to care for herself #infectious encephalopathy- resolved. . ddx include delirium vs cannabis intoxication vs underlying psychiatric disorder of unknown etiology vs UTI - Appreciate Psychiatry recommendations: Dr. Dsouza - Olanzapine 2.5mg PO Q8hrs - held since 01/25/19. Need clarification from psychaitry whether to continue - PRN Olanzapine 2.5mg PO Q8hrs for agitation - treat UTI as below # Essential Hypertension, controlled -Amlodipine 5 mg p.o. daily -Hydralazine 25 mg p.o. every 6 hours as needed # E. Coli UTI, improving - Ceftriaxone therapy, plan for 5 days depending on clinical improvement. Switch to Keflex 500 mg p.o. every 12 hours- day 4 #hypercalcemia, maybe supplement induced > PTH - normal > It appears that the patient has been going off her psych meds taking an unknown quantity of calcium supplements causing hypercalcemia - check vitamin D 25 OH - check PTHRP - continue to monitor -Continue IV fluids NS @ 50 cc/hr -Discussed with nephrology. Recommended calcitonin intranasal daily # Safety and disposition - SW evaluation requested # Substance use - cannabis -SW requested for support and outpatient resources - Counselling completed today. FENPPX DVTPPX: heparin SBQ GI PPX: none needed Fluids: IV fluids as above Diet: regular Lines: peripheral PT/OT: pending Code status: Full Code Dispo: SNF vs. [facility] Reason for Continued Hospitalization: Acute psychosis. Patient unable to care for herself at home. She does not take her psychiatric medications then takes an unknown quantity of calcium supplements which is extremely dangerous. Needs to be stable on her psychiatric meds before being discharged home. 38 minutes spent on this encounter. Discussed with RN, nephrology, psychiatry, and patient. > 50% spent on counseling and care coordination. Time of note may not reflect time patient was seen. Subjective Date patient seen: Jan 27, 2019 Constitutional: Denies: chills, diaphoresis, fever, malaise, weakness, other HEENT: Denies: eye pain, blurred vision, tearing, double vision, ear pain, ear discharge, nose pain, nose congestion, throat pain, throat swelling, mouth pain , mouth swelling, other Cardiovascular: Denies: chest pain, edema, irregular heart rate, lightheadedness, palpitations, syncope, other Respiratory: Denies: cough, orthopnea, shortness of breath, SOB with excertion , SOB at rest, sputum, stridor, wheezing, other Gastrointestinal/Abdominal: Denies: abdomen distended, abdominal pain, black stools, tarry stools, blood in stool, constipated, diarrhea, difficulty swallowing, nausea, poor appetite, poor fluid intake, rectal bleeding, vomiting , other Genitourinary: Denies: burning, discharge, frequency, flank pain, hematuria, incontinence, pain, urgency, other Neurologic/Psychiatric: Denies: anxiety, depressed, emotional problems, headache, numbness, paresthesia, pre-existing deficit, seizure, tingling, tremors, weakness, other Endocrine: Denies: excessive sweating, flushing, intolerance to cold, intolerance to heat, increased hunger, increased thirst, increased urine, unexplained weight gain, unexplained weight loss, other Hematologic/Lymphatic: Denies: anemia, easy bleeding, easy bruising, other Allergies: Coded Allergies: SULFA (SULFONAMIDE ANTIBIOTICS) (Unverified Allergy, Unknown, 01/26/19) Uncoded Allergies: sulfa (Allergy, Unknown, [facility], 01/23/19) Pt reports allergies to Sulfa; unable to explain. Pt is confused Subjective No acute events overnight per nursing. Patient more alert today. TheShe does feel better overall. She endorses today that she takes a lot of "calcium supplements" at home. Does deny SI and HI. Objective Last 24 Hour Vital Signs Date Time Temp Pulse Resp B/P (MAP) Pulse Ox O2 Delivery O2 Flow Rate FiO2 01/27/19 12:00 97.3 88 19 131/73 (92) 98 01/27/19 09:16 90 143/74 01/27/19 09:00 Room Air 01/27/19 08:00 98.4 90 20 143/74 (97) 97 01/27/19 04:00 98.4 82 17 143/75 (97) 94 01/27/19 00:00 98.6 77 18 132/68 (89) 97 01/26/19 21:00 Room Air 01/26/19 20:00 98.5 82 17 135/64 (87) 96 01/26/19 16:00 97.7 84 20 148/74 (98) 96 Intake and Output 01/26/19 01/27/19 19:00 07:00 Intake Total 1725 ml 300 ml Balance 1725 ml 300 ml Intake Oral 1200 ml IV Total 525 ml 300 ml # Voids 6 5 Laboratory Tests 01/27/19 05:40: Sodium Level 139, Potassium Level 4.3, Chloride Level 107, Carbon Dioxide Level 26, Anion Gap 6, Blood Urea Nitrogen 12, Creatinine 0.6, Estimat Glomerular Filtration Rate , Glucose Level 89, Calcium Level 9.9, Phosphorus Level 2.2L, Magnesium Level 1.8 Height (Feet): 4 Height (Inches): 9.00 Weight (Pounds): 129 General Appearance: WD/WN, no apparent distress, alert EENT: PERRL/EOMI, normal ENT inspection Neck: non-tender, normal alignment, supple Cardiovascular: normal peripheral pulses, normal rate, regular rhythm, no JVD Respiratory/Chest: chest wall non-tender, lungs clear, normal breath sounds Abdomen: normal bowel sounds, non tender, soft, no organomegaly Extremities: normal range of motion, non-tender Edema: other - No lower extremity edema bilaterally Neurologic: provider 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 Jan 27, 2019 12:23
[2019-01-27] MEDS ORDERED: OLANZapine 2.5mg tab ORAL SCH (15:30)
[2019-01-27 16:00] VITALS: BP 130/75
--- NOTE | 2019-01-27 16:00 | NUR ---
NURSE NOTES: pt is very agitate and crying and anxious, Dr WATKINS visited pt and she is notified, she will F/U. will continue to monitor.
--- NOTE | 2019-01-27 19:26 | NUR ---
HAND-OFF: Report given to RN ADRCY. Pt is awake and stable.
--- NOTE | 2019-01-27 19:45 | NUR ---
NURSE NOTES: Pt is in bed,asleep. No acute distress noted. HOB elevated. Pt was given Ativan po for agitation during last shift. NS running at 50ml/hr.Fall precaution in place, bed alarm on. Call light within reach. Bed locked and low. Pt will be monitored.
[2019-01-28] VITALS: BP 130/77
--- NOTE | 2019-01-28 01:27 | NUR ---
NURSE NOTES: Pt is in bed, asleep. No acute distress noted. Vitas stable.RR 16. Fall precaution in place. Pt will be monitored.
[2019-01-28 04:00] VITALS: BP 132/74
--- NOTE | 2019-01-28 04:10 | NUR ---
NURSE NOTES: Pt removed that IV access and now pt refused to have another IV insertion.
--- NOTE | 2019-01-28 06:00 | NUR ---
NURSE NOTES: An IV access established on Left Hand; 24G.
--- NOTE | 2019-01-28 07:08 | NUR ---
NURSE NOTES: Received report from ALEXANDER Mcgee. Patient in bed eating. On room air, no signs of distress or labored breathing. Bed in lowest position with call light in reach. Will continue with plan care.
--- NOTE | 2019-01-28 07:10 | NUR ---
HAND-OFF: Report given to ALEXANDER Rod. Informed that patient is fall risk.
[2019-01-28 08:00] VITALS: BP 144/74
[2019-01-28 08:04] LABS: ALANINE AMINOTRANSFERASE 22 U/L (12-78); ALBUMIN 3.3 G/DL (3.4-5.0); ALKALINE PHOSPHATASE 46 U/L (46-116); ANION GAP 9 mmol/L (5-15); ASPARTATE AMINO TRANSFERASE 13 U/L (15-37); BILIRUBIN,TOTAL 0.2 MG/DL (0.2-1.0); BLOOD UREA NITROGEN 14 mg/dL (7-18); CALCIUM 10.1 MG/DL (8.5-10.1); CARBON DIOXIDE 25 MMOL/L (21-32); CHLORIDE 109 MMOL/L (98-107); CREATININE 0.6 MG/DL (0.55-1.30); POTASSIUM 4.3 MMOL/L (3.5-5.1); SODIUM 143 MMOL/L (136-145)
[2019-01-28] MEDS: Cephalexin 500mg cap ORAL SCH (09:29)
[2019-01-28] MEDS: Heparin 5000 units/ml inj SUBQ SCH ×2 (09:30→21:22)
--- NOTE | 2019-01-28 11:55 | Progress Note ---
DATE: 01/27/2019 SUBJECTIVE: The patient has poor insight into her current medical condition. Still somewhat confused. She is unable to understand, process, or communicate rationally. The patient is responding to internal stimuli. The patient was disoriented to date today. The patient stated that she lives alone and would like to go home and take care of herself. She does not understand that she is currently dependent and unable to care for self. MENTAL STATUS EXAMINATION: Alert and oriented times self and place. Mood is anxious. Affect is constricted, congruent with mood. Thought process is concrete. Thought content, no suicidal or homicidal ideation. ASSESSMENT: 1. Acute encephalopathy. 2. Psychotic disorder. PLAN: 1. Continue the Zyprexa 5 mg at bedtime. 2. The patient lacks capacity to make decision. 3. Recommend to transfer the patient to rehabilitation unit or care home as a temporary basis patient regains her independence. Douglas Dsouza M.D. DR: YAIR JOB#: [id number] CC: AMANDA
[2019-01-28 12:00] VITALS: BP 137/82
--- NOTE | 2019-01-28 12:39 | General Progress Note ---
Assessment/Plan Problem List: (1) Psychotic disorder ICD Codes: F29 - Unspecified psychosis not due to a substance or known physiological condition SNOMED: 72715142 (2) Delirium ICD Codes: R41.0 - Disorientation, unspecified SNOMED: 0255333, 286516089 (3) Encephalopathy acute ICD Codes: G93.40 - Encephalopathy, unspecified SNOMED: 75878745, 739619887 (4) Hypertension ICD Codes: I10 - Essential (primary) hypertension SNOMED: 60378123, 237304725 Qualifiers: Qualified Codes: I10 - Essential (primary) hypertension (5) Behavioral disorder SNOMED: 794457755 (6) UTI (urinary tract infection) ICD Codes: N39.0 - Urinary tract infection, site not specified SNOMED: 45705550 Status: stable Assessment/Plan: 73 y Female who lives alone and was BIBA due to erratic behavior noted by her neighbor. # Altered mental status 2/2 psychotic disorder. Unable to care for herself. Lacks decision-making capacity per psychiatry #infectious encephalopathy- resolved. . ddx include delirium vs cannabis intoxication vs underlying psychiatric disorder of unknown etiology vs UTI - Appreciate Psychiatry recommendations: Dr. Dsouza - Olanzapine 5mg PO QHS - Lacks decision-making capacity -Needs placement at SNF # Essential Hypertension, controlled -Amlodipine 5 mg p.o. daily -Hydralazine 25 mg p.o. every 6 hours as needed # E. Coli UTI, improving - Ceftriaxone therapy, plan for 5 days depending on clinical improvement. Switch to Keflex 500 mg p.o. every 12 hours- day 4 #hypercalcemia, maybe supplement induced - stable > PTH - normal > It appears that the patient has been going off her psych meds taking an unknown quantity of calcium supplements causing hypercalcemia - check vitamin D 25 OH - check PTHRP - continue to monitor -Continue IV fluids NS @ 50 cc/hr -Discussed with nephrology. Recommended calcitonin intranasal daily # Safety and disposition - SW evaluation requested # Substance use - cannabis -SW requested for support and outpatient resources - Counselling completed today. FENPPX DVTPPX: heparin SBQ GI PPX: none needed Fluids: IV fluids as above Diet: regular Lines: peripheral PT/OT: pending Code status: Full Code Dispo: SNF vs. [facility] Reason for Continued Hospitalization: Acute psychosis. Patient unable to care for herself at home. Lacks decision making capacity. She does not take her psychiatric medications then takes an unknown quantity of calcium supplements which is extremely dangerous. Needs placement. 28 minutes spent on this encounter. Discussed with RN, psychiatry, and patient. > 50% spent on counseling and care coordination. Time of note may not reflect time patient was seen. Subjective Date patient seen: Jan 28, 2019 Constitutional: Denies: chills, diaphoresis, fever, malaise, weakness, other HEENT: Denies: eye pain, blurred vision, tearing, double vision, ear pain, ear discharge, nose pain, nose congestion, throat pain, throat swelling, mouth pain , mouth swelling, other Cardiovascular: Denies: chest pain, edema, irregular heart rate, lightheadedness, palpitations, syncope, other Respiratory: Denies: cough, orthopnea, shortness of breath, SOB with excertion , SOB at rest, sputum, stridor, wheezing, other Gastrointestinal/Abdominal: Denies: abdomen distended, abdominal pain, black stools, tarry stools, blood in stool, constipated, diarrhea, difficulty swallowing, nausea, poor appetite, poor fluid intake, rectal bleeding, vomiting , other Genitourinary: Denies: burning, discharge, frequency, flank pain, hematuria, incontinence, pain, urgency, other Neurologic/Psychiatric: Denies: anxiety, depressed, emotional problems, headache, numbness, paresthesia, pre-existing deficit, seizure, tingling, tremors, weakness, other Endocrine: Denies: excessive sweating, flushing, intolerance to cold, intolerance to heat, increased hunger, increased thirst, increased urine, unexplained weight gain, unexplained weight loss, other Hematologic/Lymphatic: Denies: anemia, easy bleeding, easy bruising, other Allergies: Coded Allergies: SULFA (SULFONAMIDE ANTIBIOTICS) (Unverified Allergy, Unknown, 01/26/19) Uncoded Allergies: sulfa (Allergy, Unknown, [facility], 01/23/19) Pt reports allergies to Sulfa; unable to explain. Pt is confused Subjective No acute events overnight per nursing. Patient more alert today. No other complaints. She feels well. Still hears flies. Denies SI/HI. Objective Last 24 Hour Vital Signs Date Time Temp Pulse Resp B/P (MAP) Pulse Ox O2 Delivery O2 Flow Rate FiO2 01/28/19 09:29 91 144/74 10/25/19 04:00 98.4 104 18 132/74 (93) 95 01/28/19 00:00 98.1 74 18 130/77 (94) 96 01/27/19 21:00 Room Air 01/27/19 16:00 98.2 90 18 130/75 (93) 96 Intake and Output 01/27/19 01/28/19 19:00 07:00 Intake Total 1735.0 ml 980 ml Balance 1735.0 ml 980 ml Intake Oral 800 ml 480 ml IV Total 935.0 ml 500 ml # Voids 6 4 Laboratory Tests 01/28/19 05:45: Sodium Level 143, Potassium Level 4.3, Chloride Level 109H, Carbon Dioxide Level 25, Anion Gap 9, Blood Urea Nitrogen 14, Creatinine 0.6, Estimat Glomerular Filtration Rate , Glucose Level 112H, Calcium Level 10.1, Total Bilirubin 0.2, Aspartate Amino Transf (AST/SGOT) 13L, Alanine Aminotransferase ( ALT/SGPT) 22, Alkaline Phosphatase 46, Total Protein 6.6, Albumin 3.3L, Globulin 3.3, Albumin/Globulin Ratio 1.0 Height (Feet): 4 Height (Inches): 9.00 Weight (Pounds): 129 General Appearance: WD/WN, no apparent distress, alert EENT: PERRL/EOMI, normal ENT inspection Neck: non-tender, normal alignment, supple Cardiovascular: normal peripheral pulses, normal rate, regular rhythm, no JVD Respiratory/Chest: chest wall non-tender, lungs clear, normal breath sounds Abdomen: normal bowel sounds, non tender, soft, no organomegaly, no mass Extremities: other - No lower extremity edema bilaterally 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 Jan 28, 2019 12:39
[2019-01-28] MEDS: LORazepam 1mg tab ORAL PRN ×2 (13:50→21:20)
--- NOTE | 2019-01-28 15:51 | NUR ---
DISCHARGE PLANNING DISCHARGE PLAN DISCUSSED WITH DR ALLEN FAXED CLINICALS TO [facility] T: [phone] [facility] T: [phone] [facility] T: [phone] [facility] T: [phone] AWAIT RESPONSE ~ ACCEPTANCE
[2019-01-28 16:00] VITALS: BP 130/78
--- NOTE | 2019-01-28 19:18 | NUR ---
HAND-OFF: Report given to ALEXANDER Mcgee.
[2019-01-28] MEDS ORDERED: LORazepam Inj 2mg/ml 1ml IV PRN (19:30)
--- NOTE | 2019-01-28 19:48 | NUR ---
NURSE NOTES: Pt is in bed,awake and verbal. No acute distress noted. HOB elevated. Pt wants to go home. Fall precaution in place, bed alarm on. Call light within reach. Bed locked and low. Pt asked to call for assistance before getting out of bed. Pt will be monitored.
[2019-01-28 20:00] VITALS: BP 134/80
--- NOTE | 2019-01-29 00:45 | Progress Note ---
DATE: 01/29/2019 SUBJECTIVE: The patient continues to be forgetful, more alert; however, still dependent. The patient would like to be discharged; however, unable to understand process, communicate rationally. The patient is still dependent. Needs medical clerical assistant. The patient is awaiting placement. MENTAL STATUS EXAMINATION: The patient is alert, oriented times self, place. Mood is neutral. Affect is flat. Thought process is concrete. Thought content, no suicidal or homicidal ideations. Cognition is impaired. Insight and judgment is impaired. ASSESSMENT: 1. Cognitive impairment. 2. Acute encephalopathy, resolved. PLAN: 1. Continue the Zyprexa 5 mg at bedtime. 2. The patient will benefit from short-term rehab. Douglas Dsouza M.D. DR: MAIKEL JOB#: [id number] CC:
[2019-01-29 04:00] VITALS: BP 147/84
--- NOTE | 2019-01-29 05:00 | NUR ---
NURSE NOTES: Pt slept well overnight. Pt was calm and cooperative. New IV access established on right hand; 24G. Instructed to not remove IV access.
--- NOTE | 2019-01-29 07:10 | NUR ---
HAND-OFF: Report given to ALEXANDER Rod. Informed pt is fall risk.
--- NOTE | 2019-01-29 07:15 | NUR ---
NURSE NOTES: Received report from ALEXANDER Mcgee. Patient in bed eating breakfast. On room air, no signs of distress or labored breathing. IV intact, patent, and infusing fluids. Bed in lowest position with call light in reach. Will continue with plan of care.
[2019-01-29 08:00] VITALS: BP 140/80
[2019-01-29 08:39] LABS: ANION GAP 10 mmol/L (5-15); BLOOD UREA NITROGEN 16 mg/dL (7-18); CALCIUM 10.7 MG/DL (8.5-10.1); CARBON DIOXIDE 24 MMOL/L (21-32); CHLORIDE 107 MMOL/L (98-107); CREATININE 0.7 MG/DL (0.55-1.30); POTASSIUM 4.3 MMOL/L (3.5-5.1); SODIUM 141 MMOL/L (136-145)
--- NOTE | 2019-01-29 08:44 | General Progress Note ---
Assessment/Plan Status: stable Assessment/Plan: 73 y Female who lives alone and was BIBA due to erratic behavior noted by her neighbor. # Altered mental status 2/2 psychotic disorder. Unable to care for herself. Lacks decision-making capacity per psychiatry #infectious encephalopathy- resolved. . ddx include delirium vs cannabis intoxication vs underlying psychiatric disorder of unknown etiology vs UTI - Appreciate Psychiatry recommendations: Dr. Dsouza - Olanzapine 5mg PO QHS - Lacks decision-making capacity -Needs placement at SNF # Essential Hypertension, controlled -Amlodipine 5 mg p.o. daily -Hydralazine 25 mg p.o. every 6 hours as needed # E. Coli UTI, improving - Ceftriaxone therapy, plan for 5 days depending on clinical improvement. Switch to Keflex 500 mg p.o. every 12 hours- day 4 #hypercalcemia, maybe supplement induced - stable > PTH - normal > It appears that the patient has been going off her psych meds taking an unknown quantity of calcium supplements causing hypercalcemia - check vitamin D 25 OH - check PTHRP - continue to monitor -Continue IV fluids NS @ 50 cc/hr -Discussed with nephrology. Recommended calcitonin intranasal daily. Calcium still elevated after hydration. Dr. Wood to order work up. case d/w him. Continue to monitor serum calcium # Safety and disposition - SW evaluation requested # Substance use - cannabis -SW requested for support and outpatient resources - Counselling completed today. FENPPX DVTPPX: heparin SBQ GI PPX: none needed Fluids: IV fluids as above Diet: regular Lines: peripheral PT/OT: pending Code status: Full Code Dispo: SNF vs. [facility] Reason for Continued Hospitalization: Acute psychosis. Patient unable to care for herself at home. Lacks decision making capacity. She does not take her psychiatric medications then takes an unknown quantity of calcium supplements which is extremely dangerous. Needs placement. 28 minutes spent on this encounter. Discussed with RN, psychiatry, and patient. > 50% spent on counseling and care coordination. Time of note may not reflect time patient was seen. Subjective Date patient seen: Jan 29, 2019 ROS Limited/Unobtainable: No Constitutional: Denies: no symptoms, chills, diaphoresis, fever, malaise, weakness, other HEENT: Denies: no symptoms, eye pain, blurred vision, tearing, double vision, ear pain, ear discharge, nose pain, nose congestion, throat pain, throat swelling, mouth pain, mouth swelling, other Cardiovascular: Denies: no symptoms, chest pain, edema, irregular heart rate, lightheadedness, palpitations, syncope, other Respiratory: Denies: no symptoms, cough, orthopnea, shortness of breath, SOB with excertion, SOB at rest, sputum, stridor, wheezing, other Gastrointestinal/Abdominal: Denies: no symptoms, abdomen distended, abdominal pain, black stools, tarry stools, blood in stool, constipated, diarrhea, difficulty swallowing, nausea, poor appetite, poor fluid intake, rectal bleeding , vomiting, other Genitourinary: Denies: no symptoms, burning, discharge, frequency, flank pain, hematuria, incontinence, pain, urgency, other Neurologic/Psychiatric: Denies: no symptoms, anxiety, depressed, emotional problems, headache, numbness, paresthesia, pre-existing deficit, seizure, tingling, tremors, weakness, other Endocrine: Denies: no symptoms, excessive sweating, flushing, intolerance to cold, intolerance to heat, increased hunger, increased thirst, increased urine, unexplained weight gain, unexplained weight loss, other Hematologic/Lymphatic: Denies: no symptoms, anemia, easy bleeding, easy bruising, other Allergies: Coded Allergies: SULFA (SULFONAMIDE ANTIBIOTICS) (Unverified Allergy, Unknown, 01/26/19) Uncoded Allergies: sulfa (Allergy, Unknown, [facility], 01/23/19) Pt reports allergies to Sulfa; unable to explain. Pt is confused Subjective Seen and examined Wants to be discharged No acute vents overnight Objective Last 24 Hour Vital Signs Date Time Temp Pulse Resp B/P (MAP) Pulse Ox O2 Delivery O2 Flow Rate FiO2 01/29/19 04:00 97.1 78 19 147/84 (105) 98 01/28/19 21:00 Room Air 01/28/19 20:00 98.1 78 19 134/80 (98) 98 01/28/19 16:00 97.9 76 19 130/78 (95) 99 01/28/19 12:00 98.1 97 19 137/82 (100) 99 01/28/19 09:29 91 144/74 01/28/19 09:00 Room Air Intake and Output 01/28/19 01/29/19 19:00 07:00 Intake Total 1500 ml 650 ml Balance 1500 ml 650 ml Intake Oral 1500 ml 600 ml IV Total 50 ml # Voids 4 2 Laboratory Tests 01/28/19 13:50: Ionized Calcium (Measured) 1.23 01/29/19 07:40: Ionized Calcium (Measured) [Pending], Sodium Level 141, Potassium Level 4.3, Chloride Level 107, Carbon Dioxide Level 24, Anion Gap 10, Blood Urea Nitrogen 16, Creatinine 0.7, Estimat Glomerular Filtration Rate , Glucose Level 172H, Calcium Level 10.7H Height (Feet): 4 Height (Inches): 9.00 Weight (Pounds): 129 Objective General Appearance: WD/WN, no apparent distress, alert EENT: PERRL/EOMI, normal ENT inspection Neck: non-tender, normal alignment, supple Cardiovascular: normal peripheral pulses, normal rate, regular rhythm, no JVD Respiratory/Chest: chest wall non-tender, lungs clear, normal breath sounds Abdomen: normal bowel sounds, non tender, soft, no organomegaly, no mass Extremities: other - No lower extremity edema bilaterally Neurologic: director of placement II-XII grossly normal, no motor/sensory deficits, alert, oriented x 3, responsive Skin: normal pigmentation, warm/dry Daniel Tai M.D. Jan 29, 2019 08:44
[2019-01-29] MEDS: Heparin 5000 units/ml inj SUBQ SCH ×2 (09:33→20:40)
[2019-01-29 10:56] LABS: ALANINE AMINOTRANSFERASE 30 U/L (12-78); ALBUMIN 3.7 G/DL (3.4-5.0); ALKALINE PHOSPHATASE 51 U/L (46-116); ASPARTATE AMINO TRANSFERASE 21 U/L (15-37); BILIRUBIN,DIRECT < 0.1 MG/DL (0.0-0.3); BILIRUBIN,TOTAL 0.3 MG/DL (0.2-1.0); PHOSPHORUS 2.7 MG/DL (2.5-4.9)
[2019-01-29 12:00] VITALS: BP 152/90
[2019-01-29] MEDS: traMADol 50mg tab ORAL PRN (13:25)
[2019-01-29 16:00] VITALS: BP 130/84
--- NOTE | 2019-01-29 19:38 | NUR ---
HAND-OFF: Report given to ALEXANDER Pinedo.
--- NOTE | 2019-01-29 19:42 | NUR ---
NURSE NOTES: Patient in bed, alert x 3, with periods of confusion. Kept clean and comfortable. Provided safe environment. Bed in low and locked position. Respiration is even and unlabored. IV site noted, Iv fluid is infusing as ordered. Skin is warm and dry to touch. Abdomen is soft and non distended. No complaint of pain or discomfort noted. call light is at bedside. Will continue plan of care.
[2019-01-29 20:00] VITALS: BP 130/84
--- NOTE | 2019-01-29 23:49 | NUR ---
NURSE NOTES: Patient refused IV fluid, informed the patient regarding medication regiment, still refused. Educated regarding the medication, still refused. Will reassess patient. Patient alert x 3 with periods of confusion.
[2019-01-30] VITALS: BP 135/69
[2019-01-30 04:00] VITALS: BP 134/69
--- NOTE | 2019-01-30 07:13 | NUR ---
NURSE NOTES: Patient refused IV fluid. ALso refused blood draw. Re-
--- NOTE | 2019-01-30 07:14 | NUR ---
NURSE NOTES: Patient refused IV fluid. Attempted to re orient and educate patient, still refused. Patient also blood draw, informed of the risks and benefits.
--- NOTE | 2019-01-30 07:30 | NUR ---
HAND-OFF: Report given to ALEXANDER Mix.
--- NOTE | 2019-01-30 07:31 | NUR ---
NURSE NOTES: Received patient on bed awake. No SOB or cardiac distress. Complaining of sueing the institution for putting IV site on her. IV site intact. Will continue plan of care.
[2019-01-30 08:00] VITALS: BP 153/79
--- NOTE | 2019-01-30 08:07 | NUR ---
NURSE NOTES: IV access hanging on patient's hand, patient pulling it out. RN explained risks and offered to fix it. But patient was agitated and combative and attempted to bite RN, refused to have IV site fixed. Insistent of having IV access removed. RN removed IV access and informed charge nurse.
--- NOTE | 2019-01-30 08:15 | NUR ---
NURSE NOTES: MD informed of patient's refusal for IV access. Awaiting orders.
[2019-01-30] MEDS: Heparin 5000 units/ml inj SUBQ SCH ×2 (09:05→20:44)
--- NOTE | 2019-01-30 10:48 | General Progress Note ---
Assessment/Plan Status: stable Assessment/Plan: 73 y Female who lives alone and was BIBA due to erratic behavior noted by her neighbor. # Altered mental status 2/2 psychotic disorder. Unable to care for herself. Lacks decision-making capacity per psychiatry #infectious encephalopathy- resolved. . ddx include delirium vs cannabis intoxication vs underlying psychiatric disorder of unknown etiology vs UTI - Appreciate Psychiatry recommendations: Dr. Dsouza - Olanzapine 5mg PO QHS - Lacks decision-making capacity -Needs placement at SNF -Psych follow up regarding agitation this weekend. # Essential Hypertension, controlled -Amlodipine 5 mg p.o. daily -Hydralazine 25 mg p.o. every 6 hours as needed # E. Coli UTI, improving - Ceftriaxone therapy, plan for 5 days depending on clinical improvement. Switch to Keflex 500 mg p.o. every 12 hours- day 4 #hypercalcemia, maybe supplement induced - stable > PTH - normal > It appears that the patient has been going off her psych meds taking an unknown quantity of calcium supplements causing hypercalcemia - check vitamin D 25 OH - check PTHRP - continue to monitor -Continue IV fluids NS @ 50 cc/hr -Discussed with nephrology. Recommended calcitonin intranasal daily. Calcium still elevated after hydration. Dr. Wood to order work up. case d/w him. Continue to monitor serum calcium # Safety and disposition - SW evaluation requested # Substance use - cannabis -SW requested for support and outpatient resources - Counselling completed today. FENPPX DVTPPX: heparin SBQ GI PPX: none needed Fluids: IV fluids as above Diet: regular Lines: peripheral PT/OT: pending Code status: Full Code Dispo: SNF vs. [facility] Reason for Continued Hospitalization: Acute psychosis. Patient unable to care for herself at home. Lacks decision making capacity. She does not take her psychiatric medications then takes an unknown quantity of calcium supplements which is extremely dangerous. Needs placement. 28 minutes spent on this encounter. Discussed with RN, psychiatry, and patient. > 50% spent on counseling and care coordination. Time of note may not reflect time patient was seen. Subjective Date patient seen: Jan 30, 2019 ROS Limited/Unobtainable: Yes Allergies: Coded Allergies: SULFA (SULFONAMIDE ANTIBIOTICS) (Unverified Allergy, Unknown, 01/26/19) Uncoded Allergies: sulfa (Allergy, Unknown, UKN, 01/23/19) Pt reports allergies to Sulfa; unable to explain. Pt is confused Subjective Seen and examined Wants to be discharged has been very agitated refusing IV and blood draws Objective Last 24 Hour Vital Signs Date Time Temp Pulse Resp B/P (MAP) Pulse Ox O2 Delivery O2 Flow Rate FiO2 01/30/19 09:02 82 153/79 01/30/19 08:00 97.3 82 20 153/79 (103) 97 01/30/19 04:00 98.2 74 19 134/69 (90) 95 01/30/19 00:00 97.0 70 18 135/69 (91) 98 01/29/19 20:22 Room Air 01/29/19 20:00 97.5 74 18 130/84 (99) 95 01/29/19 16:00 98.1 98 18 130/84 (99) 97 01/29/19 12:00 98.2 98 18 152/90 (110) 96 Intake and Output 01/29/19 01/30/19 19:00 07:00 Intake Total 1250 ml 1400 ml Output Total 1500 ml Balance 1250 ml -100 ml Intake Oral 1200 ml 1200 ml IV Total 50 ml 200 ml Output Urine Total 1500 ml # Voids 6 3 # Bowel Movements 1 1 Laboratory Tests 01/30/19 10:32: Sodium Level [Pending], Potassium Level [Pending], Chloride Level [Pending], Carbon Dioxide Level [Pending], Blood Urea Nitrogen [Pending], Creatinine [ Pending], Estimat Glomerular Filtration Rate [Pending], Glucose Level [Pending] , Calcium Level [Pending], Phosphorus Level [Pending], Magnesium Level [Pending] , Total Bilirubin [Pending], Aspartate Amino Transf (AST/SGOT) [Pending], Alanine Aminotransferase (ALT/SGPT) [Pending], Alkaline Phosphatase [Pending], Total Protein [Pending], Albumin [Pending], Globulin [Pending], Free Thyroxine [ Pending], Free Triiodothyronine [Pending] Height (Feet): 4 Height (Inches): 9.00 Weight (Pounds): 129 Objective General Appearance: WD/WN, no apparent distress, alert EENT: PERRL/EOMI, normal ENT inspection Neck: non-tender, normal alignment, supple Cardiovascular: normal peripheral pulses, normal rate, regular rhythm, no JVD Respiratory/Chest: chest wall non-tender, lungs clear, normal breath sounds Abdomen: normal bowel sounds, non tender, soft, no organomegaly, no mass Extremities: other - No lower extremity edema bilaterally 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 Jan 30, 2019 10:48
[2019-01-30 11:19] LABS: ALANINE AMINOTRANSFERASE 59 U/L (12-78); ALBUMIN 3.6 G/DL (3.4-5.0); ALBUMIN/GLOBULIN RATIO 1.1 (1.0-2.7); ALKALINE PHOSPHATASE 52 U/L (46-116); ANION GAP 7 mmol/L (5-15); ASPARTATE AMINO TRANSFERASE 35 U/L (15-37); BILIRUBIN,TOTAL 0.4 MG/DL (0.2-1.0); BLOOD UREA NITROGEN 16 mg/dL (7-18); CALCIUM 10.1 MG/DL (8.5-10.1); CARBON DIOXIDE 26 MMOL/L (21-32); CHLORIDE 105 MMOL/L (98-107); CREATININE 0.5 MG/DL (0.55-1.30); PHOSPHORUS 3.1 MG/DL (2.5-4.9); POTASSIUM 4.3 MMOL/L (3.5-5.1); SODIUM 138 MMOL/L (136-145)
--- NOTE | 2019-01-30 11:49 | NUR ---
NURSE NOTES: Dr Tai aware that patient refused IV access. Suggests increase in psych meds c/o psych MD.
[2019-01-30 12:00] VITALS: BP 133/83
[2019-01-30 16:00] VITALS: BP 159/80
--- NOTE | 2019-01-30 18:43 | NUR ---
NURSE NOTES: Patient's belongings list have some missing items. Incident report made with Notif Num [id number].
--- NOTE | 2019-01-30 19:27 | NUR ---
HAND-OFF: Report given to
--- NOTE | 2019-01-30 19:56 | NUR ---
NURSE NOTES: Patient in bed, awake, alert x 3 periods of confusion. No complaint of pain or discomfort noted. Respiration is even and unlabored. Abdomen is soft and non distended. No iv site noted. Bed in low and locked position. Skin is intact, warm and dry to touch. Call light is at bedside. Will continue plan of care.
[2019-01-30 20:00] VITALS: BP 144/96
[2019-01-30] MEDS: traMADol 50mg tab ORAL PRN (20:27)
--- NOTE | 2019-01-30 20:44 | NUR ---
NURSE NOTES: Patient refused heparin, educated patient regarding regiment still refused.
[2019-01-31] VITALS: BP 127/66
--- NOTE | 2019-01-31 03:00 | Progress Note ---
DATE: 01/31/2019 SUBJECTIVE: The patient was combative earlier this morning. She is really agitated, responding to internal stimuli, and not manageable. The patient has episodes of confusion. More alert, however, still has poor insight. MENTAL STATUS EXAMINATION: Alert and oriented times self and place. Mood is irritable. Affect is constricted, congruent with mood. Thought process is concrete. Thought content, delusions and hallucinations. Cognition is impairment. Insight and judgment is impaired. ASSESSMENT: 1. not otherwise unspecified. 2. Acute encephalopathy. PLAN: 1. Continue the Zyprexa 5 mg at bedtime. 2. Start the patient on Prozac 20 mg in the morning. 3. Ativan p.r.n. Douglas Dsouza M.D. DR: MARA JOB#: [id number] CC:
[2019-01-31 04:00] VITALS: BP 133/79
--- NOTE | 2019-01-31 07:15 | NUR ---
HAND-OFF: Report given to ALEXANDER Mix.
--- NOTE | 2019-01-31 07:16 | NUR ---
NURSE NOTES: Received patient on bed awake. No SOB or cardiac distress. Complaining of herpes. Will continue plan of care. Addendum: 01/31/19 at 1058 by Maria Del Rosario Duong RN Call light within reach.
[2019-01-31 08:00] VITALS: BP 126/70
[2019-01-31] MEDS: Heparin 5000 units/ml inj SUBQ SCH (09:34)
--- NOTE | 2019-01-31 10:00 | NUR ---
NURSE NOTES: Spoke with Rere hansen. She said she will call patient later this afternoon. Patient made aware. Patient was pleased.
[2019-01-31 11:43] LABS: ANION GAP 7 mmol/L (5-15); BLOOD UREA NITROGEN 21 mg/dL (7-18); CARBON DIOXIDE 27 MMOL/L (21-32); CHLORIDE 104 MMOL/L (98-107); CREATININE 0.6 MG/DL (0.55-1.30); POTASSIUM 4.1 MMOL/L (3.5-5.1); SODIUM 138 MMOL/L (136-145)
[2019-01-31 12:00] VITALS: BP 133/81
[2019-01-31] MEDS ORDERED: FLUOXETINE HCL20 MG ORAL (12:56)
[2019-01-31] MEDS ORDERED: CALCITONIN-SAL3.7 ML NASAL (12:56)
[2019-01-31] MEDS ORDERED: NORVASC5 MG ORAL (12:56)
[2019-01-31] MEDS ORDERED: OLANZAPINE5 MG ORAL (12:56)
--- NOTE | 2019-01-31 13:58 | NUR ---
RD ASSESSMENT & RECOMMENDATIONS SEE CARE ACTIVITY FOR COMPLETE ASSESSMENT DAILY ESTIMATED NEEDS: Needs based on General/ 47kg abw 25-30 kcals/kg 9146-4346 total kcals 0.8-1.0 g protein/kg 38-47 g total protein 25-30 mL/kg 4455-6033 total fluid mLs NUTRITION DIAGNOSIS: Altered nutrition related lab values R/T vit/min deficiencies as evidenced by low mag (1.7), low vit D25 level (27) CURRENT DIET:Cardiac PO DIET RECOMMENDATIONS: LOW NA ADDITIONAL RECOMMENDATIONS: * Monitor lytes, replete as needed (mag 1.7 on 01/30) * Add Vit D3 1000mg Q daily (Vit D25=27) * Standing weight for accurate CBW
[2019-01-31 16:00] VITALS: BP 140/80
--- NOTE | 2019-01-31 16:25 | NUR ---
DISCHARGED PLAN: DISCUSSED DISCHAARGE WITH PATIENT AT BEDSIDE PATIENT HAS BEEN ACCEPTED TO [facility] T:[phone] FOR NURSE TO NURSE REPORT ROOM # 15 [facility] HAS BEEN CALLED PICKUP TIME @1630 [facility] OF TRANSFER LINDA SILVESTRE T:[phone]
--- NOTE | 2019-01-31 16:34 | NUR ---
NURSE NOTES: Dr. Dsouza made aware that patient refuses to be d/c to snf and is agitated and crying. RN called but reached Dr Wisdom's voicemail, left a message.
--- NOTE | 2019-01-31 17:30 | NUR ---
NURSE NOTES: Dr Dsouza with orders to medicate with ativan 2mg IM x 1 time and DC her, said that patient doesn't have capacity to make decisions.
[2019-01-31] MEDS ORDERED: LORazepam Inj 2mg/ml 1ml IM SCH (17:33)
--- NOTE | 2019-01-31 18:29 | NUR ---
NURSE NOTES: Patient discharged in stable condition accompanied by ambulance personnel. Belongings checked with some missing items, incident report already on file. No skin issues noted. Ambulance to transport patient to [facility]. Discharge instructions given, verbalized understanding. No IV access. No ID band upon discharge. Addendum: 01/31/19 at 1835 by Maria Del Rosario Duong RN Patient calm and cooperative at this time. Ativan 2mg IM x 1 time not given.
--- NOTE | 2019-01-31 18:43 | Discharge Summary ---
Discharge Summary Hospital Course Date of Admission Jan 23, 2019 at 04:45 Date of Discharge Admitting Diagnosis Altered mental status,hypertension HPI Tommy Tovar is a 73 year old female who was admitted on Jan 23, 2019 at 04:45 for Altered Mental Status, Hypertension Consultations Psychiatry, nephrology Hospital Course 73 y Female who lives alone and was BIBA due to erratic behavior noted by her neighbor. Patient was treated for urinary tract infection. Urine culture was E. coli. Patient had borderline elevated calcium. Unclear etiology at this time. PTH normal. Vitamin D 27. PTHRP still pending on discharge. Patient treated with IV fluids and calcitonin intranasally which improved calcium level to high normal on discharge. Patient completed 5 days of antibiotics. Despite treatment with antibiotics and calcitonin patient continued to exhibit psychotic behavior including stating that there were "flies talking to her" and herpes all over her body. Psychiatry was consulted who recommended Olanzapine 5mg PO QHS and ativan PRN. Patient stated that the voices decreased in intensity. On discharge the patient still lacks decision-making capacity per psychiatry. Was discharged to shelter facility for continued psychiatric care. Blood pressure was controlled with amlodipine. # Altered mental status 2/2 psychotic disorder. Unable to care for herself. Lacks decision-making capacity per psychiatry. May have had component of hypercalcemia #infectious encephalopathy- resolved. . ddx include delirium vs cannabis intoxication vs underlying psychiatric disorder of unknown etiology vs UTI - Appreciate Psychiatry recommendations: Dr. Dsouza - Olanzapine 5mg PO QHS - Lacks decision-making capacity - Ativan PRN # Essential Hypertension, controlled -Amlodipine 5 mg p.o. daily -Hydralazine 25 mg p.o. every 6 hours as needed # E. Coli UTI, improving - Ceftriaxone therapy, plan for 5 days depending on clinical improvement. Switch to Keflex 500 mg p.o. every 12 hours. Completed 5 days #hypercalcemia, maybe supplement induced - stable > PTH - normal > Vitamin D 25 OH - normal > It appears that the patient has been going off her psych meds taking an unknown quantity of calcium supplements causing hypercalcemia - check vitamin D 25 OH - f/u PTHRP - continue to monitor -Discussed with nephrology. Recommended calcitonin intranasal daily on discharge. # Safety and disposition - SW evaluation requested # Substance use - cannabis -SW requested for support and outpatient resources Physical exam Vitals: Temperature 97.9, pulse 97, respirations 18, blood pressure 133/81 General: WDWN female in NAD, A&O x 4 HEENT: Normocephalic cephalic atraumatic, pupils equal round reactive to light and accommodation, nares patent and no symmetrical, no tonsillar exudates, mucous membranes moist CV: Regular rate regular rhythm, no murmurs, rubs, or gallops Pulm: Lungs clear to auscultation bilaterally. No wheezes, rhonchi, or rales GI: Soft, nontender, nondistended, bowel sounds present Neuro: CN 2-12 intact bilaterally, no focal signs. Ext: No lower extremity edema bilaterally Skin: no rashes lesions or ulcers Msk: Joints symmetrical in upper extremity and lower extremity bilaterally, no joint swelling. Lymph: No lymphadenopathy in upper extremity and lower extremity > 30 minutes spent on this encounter. Discussed with RN, psychiatry, and patient. > 50% spent on counseling and care coordination. Time of note may not reflect time patient was seen. Discharge Condition Upon Discharge: stable Discharge Disposition Patient was discharged to [facility] Discharge Diagnoses: (1) Psychotic disorder (2) UTI (urinary tract infection) (3) Behavioral disorder (4) Hypertension (5) Encephalopathy acute (6) Delirium Romel Cortez D.O. Jan 31, 2019 18:43
== END 2019-01-31 18:50 | DRG 640 ==
LOC: EDBD 03:09 → EMR 04:25 → 4E 04:45 → EDBEDREQ 04:52 → 4E 16:46
DX: E83.52 Hypercalcemia (principal); G93.41 Metabolic encephalopathy; N39.0 Urinary tract infection, site not specified; I11.9 Hypertensive heart disease without heart failure; F28 Other psychotic disorder not due to a substance or known physiological condition; Z88.2 Allergy status to sulfonamides; F12.90 Cannabis use, unspecified, uncomplicated; B96.20 Unspecified Escherichia coli [E. coli] as the cause of diseases classified elsewhere; R41.0 Disorientation, unspecified; Z91.14 Patient's other noncompliance with medication regimen
CPT/HCPCS: 36415; 70450; 80048; 80053; 80076; 80307; 81001; 82306; 82330; 83519; 83735; 83970; 84100; 84439; 84443; 84481; 85025; 87086; 87181; 96361; 96365; 96375; 99285; J2405; J7030; J8499

== ENCOUNTER 2019-08-10 16:13 | Inpatient (IN) | payer MEDICARE ==
[~2019-08-10] VITALS: Ht 144.8 cm; Wt 60.3 kg
[~2019-08-10 16:13] MED LIST: CALCITONIN-SAL3.7 ML NASAL; FLUOXETINE HCL20 MG ORAL; NORVASC5 MG ORAL; OLANZAPINE5 MG ORAL
--- NOTE | 2019-08-10 16:22 | Emergency Room Report ---
History of Present Illness General Chief Complaint: Behavioral Complaint Source: Patient, EMS, Law Enforcement Present Illness HPI Patient is a 74-year-old female past medical history of psychiatric disorder and hypertension who was brought in by EMS and [employer] for bizarre behavior. Patient was seen walking outside and seemed confused. She is alert and oriented x3 and states that she feels anxious. She states that she does not really want to be seen but we have convinced her to come into the ER. She denies any fever or chills she denies any chest pain or shortness of breath. Patient states that she was seen at another hospital yesterday but does not know the name of it. Per prior records patient was seen here for similar complaint. EMS at that time had reported that the patient appeared to be a hoarder within her residence. Today patient keeps talking about somebody who stole her car which is why she is upset and anxious. Allergies: Coded Allergies: SULFA (SULFONAMIDE ANTIBIOTICS) (Unverified Allergy, Unknown, 01/26/19) Uncoded Allergies: sulfa (Allergy, Unknown, UKN, 01/23/19) Pt reports allergies to Sulfa; unable to explain. Pt is confused COVID-19 Screening Contact w/high risk pt: No Recent Travel to affected area: No Experienced COVID-19 symptoms?: No Patient History Last Menstrual Period: n/a Reviewed Nursing Documentation: PMH: Agreed; PSxH: Agreed Nursing Documentation-PMH Past Medical History: No History, Except For Hx Cardiac Problems: No Hx Cancer: No Hx Gastrointestinal Problems: No History Of Psychiatric Problem: Yes Hx Neurological Problems: No Review of Systems All Other Systems: negative except mentioned in HPI Physical Exam Vital Signs Date Time Temp Pulse Resp B/P (MAP) Pulse Ox O2 Delivery O2 Flow Rate FiO2 08/10/19 16:16 98.2 132 18 133/68 (89) 92 Room Air Sp02 EP Interpretation: reviewed - O2 sat 99% on RA , normal General Appearance: other - Poorly groomed in no acute distress Head: normocephalic, atraumatic Eyes: bilateral eye normal inspection, bilateral eye PERRL ENT: hearing grossly normal, normal pharynx, no angioedema, normal voice, dry mucus membranes Neck: full range of motion, supple/symm/no masses Respiratory: chest non-tender, lungs clear, normal breath sounds, speaking full sentences Cardiovascular #1: no edema, tachycardia Gastrointestinal: normal bowel sounds, non tender, soft, non-distended, no guarding, no rebound Rectal: deferred Genitourinary: normal inspection, no CVA tenderness Musculoskeletal: back normal, normal range of motion, gait/station normal, non- tender 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 Patient's d-dimer is mildly elevated. I have ordered for a VQ scan to rule out PE. Patient's labs demonstrate elevated CK to 900 with elevated BUN/creatinine. This is likely secondary to dehydration. Will give 2 L of IV fluids. Patient's UA positive. Prior culture pansensitive. I have ordered for 1 g of Rocephin. Patient will be admitted for further treatment and evaluation. EKG Diagnostic Results EKG Time: 16:21 EP Interpretation: MD Maik Rate: tachycardiac Rhythm: other - sinus tachycardia, RBBB, LAFB ST Segments: no acute changes ASA given to the pt in ED: No Rhythm Strip Diag. Results Rhythm Strip Time: 16:30 EP Interpretation: yes - MD Maik Rate: 114 bpm Rhythm: no PVC's, no ectopy, other - sinus tachycardia Last Vital Signs Date Time Temp Pulse Resp B/P (MAP) Pulse Ox O2 Delivery O2 Flow Rate FiO2 08/10/19 16:16 98.2 132 18 133/68 (89) 92 Room Air Disposition: ADMITTED INPATIENT Condition: Serious Physician Consult: Dr. Palma at 605 pm Veronica Pleitez M.D. August 10, 2019 16:22
[2019-08-10 16:30] VITALS: BP 133/68
[2019-08-10 16:56] LABS: HEMATOCRIT 46.4 % (37.0-47.0); HEMOGLOBIN 14.6 G/DL (12.0-16.0); MEAN CORPUSCULAR VOLUME 92 FL (80-99); PLATELET COUNT 296 K/UL (150-450); RED BLOOD COUNT 5.04 M/UL (4.20-5.40); WHITE BLOOD COUNT 14.2 K/UL (4.8-10.8)
[2019-08-10 17:01] LABS: BASOPHILS % (AUTO) 0.3 % (0.0-2.0); LYMPHOCYTES % (AUTO) 6.5 % (20.0-45.0); MONOCYTES % (AUTO) 7.6 % (1.0-10.0); NEUTROPHILS % (AUTO) 85.6 % (45.0-75.0)
[2019-08-10 17:21] LABS: ANION GAP 20 mmol/L (5-15); BLOOD UREA NITROGEN 42 mg/dL (7-18); CALCIUM 11.6 MG/DL (8.5-10.1); CARBON DIOXIDE 20 MMOL/L (21-32); CHLORIDE 103 MMOL/L (98-107); CREATININE 1.8 MG/DL (0.55-1.30); POTASSIUM 3.5 MMOL/L (3.5-5.1); SODIUM 143 MMOL/L (136-145)
[2019-08-10 17:34] LABS: ALANINE AMINOTRANSFERASE 32 U/L (12-78); ALBUMIN 4.8 G/DL (3.4-5.0); ALBUMIN/GLOBULIN RATIO 1.3 (1.0-2.7); ALKALINE PHOSPHATASE 65 U/L (46-116); ASPARTATE AMINO TRANSFERASE 43 U/L (15-37); BILIRUBIN,TOTAL 1.4 MG/DL (0.2-1.0); CREATINE KINASE 616 U/L (26-308)
[2019-08-10 17:38] LABS: BILIRUBIN,DIRECT 0.6 MG/DL (0.0-0.3)
--- NOTE | 2019-08-10 17:50 | Diagnostic Imaging Report ---
Indication: Chest pain, tachypnea Technique: One view of the chest Comparison: none Findings: The heart is enlarged. The lungs and pleural spaces are clear. There is thoracic scoliotic deformity. Impression: No acute process Cardiomegaly
[2019-08-10 17:55] LABS: APPEARANCE,URINE SLIGHTLY CLOUDY; BILIRUBIN, URINE NEGATIVE (NEGATIVE); GLUCOSE, URINE (UA) NEGATIVE (NEGATIVE); KETONES,URINE 4+ (NEGATIVE); LEUKOCYTE ESTERASE ,URINE 3+ (NEGATIVE); NITRITE,URINE NEGATIVE (NEGATIVE); PH,URINE 6 (4.5-8.0); PROTEIN,URINE 2+ (NEGATIVE); UROBILINOGEN,URINE 1 MG/DL (0.0-1.0)
[2019-08-10 17:56] LABS: COLOR,URINE YELLOW
[2019-08-10 18:06] VITALS: BP 137/71
[2019-08-10] MEDS ORDERED: cefTRIAXone 1 GM in NS 55 ML IVPB ONE (18:15)
[2019-08-10 19:10] VITALS: BP 149/60
[2019-08-10] MEDS: NS w/KCl 20mEq 1000ml 1,000 ML IV SCH (21:57)
[2019-08-10] MEDS: Piperacillin/Tazobactam 3.375 GM in NS 110 ML IVPB SCH (22:26)
[2019-08-10 22:35] VITALS: BP 146/58
[2019-08-10] MEDS ORDERED: LORazepam Inj 2mg/ml 1ml IV ONE (23:15)
[2019-08-11] VITALS (9 sets, daily range): BP systolic 138–158; BP diastolic 60–96
[2019-08-11] MEDS: NS w/KCl 20mEq 1000ml 1,000 ML IV SCH ×2 (03:40→10:20)
--- NOTE | 2019-08-11 04:44 | History and Physical Report ---
DATE OF ADMISSION: 08/10/2019 REASON FOR ADMISSION: Altered mentation. HISTORY OF PRESENT ILLNESS: This 74-year-old female with a known history of psychiatric disorder who was brought at the emergency room by [employer] and paramedics because of bizarre behavior. She apparently was seen walking outside, confused, and anxious. She did not want to be seen initially, but agreed subsequently to come into the emergency room. She did not have any complaints. She denied any problem at home. She apparently has been known to be a hoarder in her own residence. She is convinced that someone stole her car leading to her anxiety and anger today. In the emergency room, a diagnostic workup was undertaken and because of concerns over her psychiatric state, hospitalization initiated. PAST MEDICAL HISTORY: Hypertension, depression with psychosis, history of iatrogenic hypercalcemia. ALLERGIES: Sulfa. MEDICATIONS: Prior to admission include amlodipine, fluoxetine, Zyprexa, and calcitonin. FAMILY HISTORY: Not known. SOCIAL HISTORY: Denies smoking, alcohol, or substance abuse. REVIEW OF SYSTEMS: Cannot be reliably obtained from patient. Review of prior hospitalizations and records was completed x15 minutes and pertinent data outlined above. PHYSICAL EXAMINATION: GENERAL: Awake, alert, cooperative, but confused with very poor insight and judgment. VITAL SIGNS: Blood pressure 133/68, heart rate 132, respirations 18, afebrile, oxygen saturation on room air 92 to 98%. HEENT: Conjunctivae pink. Sclerae are anicteric. Oropharynx clear. Mucous membranes dry. NECK: Supple. Jugular venous pressure normal. No bruits or adenopathy. BREASTS: No breast masses. LUNGS: Clear. CARDIAC: Regular rhythm. Rapid rate. Normal S1, S2 with no murmur. ABDOMEN: Soft, nontender. No masses. EXTREMITIES: Good pulses. No edema. BACK: No CVA tenderness. No paraspinal tenderness. SKIN: Intact. DIAGNOSTIC AND LABORATORY DATA: Chest x-ray, no acute process. Urinalysis with 10 to 15 white cells, 4+ ketones, 1+ blood, and few bacteria. Toxicology screen is negative. ABG 7.35/33/84. White count 14.2, hemoglobin 14.6. Lactic acid 1.6. TSH 1.2. Albumin 4.8. Troponin 0.021. CK 616. Calcium 11.6. BUN 42, creatinine 1.8, bicarb 20, potassium 3.5, chloride 103, sodium 143. IMPRESSION: 1. Toxic encephalopathy. 2. Metabolic encephalopathy. 3. Hypercalcemia. 4. Prerenal azotemia with acute kidney injury. 5. Metabolic acidosis. 6. Depression with anxiety and psychosis. 7. Possible sepsis due to urinary tract infection. 8. Secondary sinus tachycardia. PLAN: 1. IV fluid hydration. 2. Antimicrobials. 3. Psychiatric therapy. 4. Check ionized calcium level. 5. DVT prophylaxis. 6. Adjust antimicrobials once final culture results are available. 7. Follow up laboratory studies including electrolytes. Leonid Palma M.D. DR: MADELYN JOB#: [id number] CC:
[2019-08-11 05:20] LABS: BASOPHILS % (AUTO) 0.6 % (0.0-2.0); EOSINOPHILS % (AUTO) 0.8 % (0.0-3.0); HEMATOCRIT 40.1 % (37.0-47.0); HEMOGLOBIN 13.8 G/DL (12.0-16.0); LYMPHOCYTES % (AUTO) 21.2 % (20.0-45.0); MEAN CORPUSCULAR VOLUME 87 FL (80-99); MONOCYTES % (AUTO) 8.5 % (1.0-10.0); PLATELET COUNT 244 K/UL (150-450); RED BLOOD COUNT 4.62 M/UL (4.20-5.40); RED CELL DISTRIBUTION WIDTH 12.2 % (11.6-14.8); WHITE BLOOD COUNT 11.9 K/UL (4.8-10.8)
[2019-08-11 05:40] LABS: ANION GAP 14 mmol/L (5-15); BLOOD UREA NITROGEN 32 mg/dL (7-18); CALCIUM 10.1 MG/DL (8.5-10.1); CARBON DIOXIDE 25 MMOL/L (21-32); CHLORIDE 112 MMOL/L (98-107); CREATININE 1.3 MG/DL (0.55-1.30); POTASSIUM 3.1 MMOL/L (3.5-5.1); SODIUM 150 MMOL/L (136-145)
[2019-08-11 05:43] LABS: ALANINE AMINOTRANSFERASE 29 U/L (12-78); ALBUMIN 3.8 G/DL (3.4-5.0); ALBUMIN/GLOBULIN RATIO 1.2 (1.0-2.7); ALKALINE PHOSPHATASE 59 U/L (46-116); ASPARTATE AMINO TRANSFERASE 38 U/L (15-37); BILIRUBIN,TOTAL 0.7 MG/DL (0.2-1.0); CREATINE KINASE 385 U/L (26-308)
[2019-08-11] MEDS: Piperacillin/Tazobactam 3.375 GM in NS 110 ML IVPB SCH ×2 (09:32→22:44)
--- NOTE | 2019-08-11 10:40 | Diagnostic Imaging Report ---
Indications: Shortness of breath Technique: IV administration 5.5 mCi 99m technetium macroaggregated albumin. Images obtained over the lungs in multiple projections. No aerosol images obtained in accordance with ACR guidelines for viral spread indication. Images obtained over the lungs in multiple projections Comparison: Reference made to chest radiograph dated 08/10/2019 Findings: No segmental or subsegmental perfusion defects are demonstrated. Impression: Unable to assign probability, due to lack of availability of aerosol images. However, perfusion images demonstrate no evidence of pulmonary embolus
[2019-08-11] MEDS: Potassium Chloride 30 MEQ in 1/2 NS 1000ml 1,000 ML IV SCH ×2 (18:24→20:46)
[2019-08-11] MEDS ORDERED: Haloperidol 5mg/ml Inj IM PRN (18:45)
[2019-08-11] MEDS ORDERED: LORazepam 1mg tab ORAL PRN (18:45)
--- NOTE | 2019-08-11 19:15 | Consultation ---
DATE OF CONSULTATION: 08/11/2019 NEPHROLOGY CONSULTATION CONSULTING PHYSICIAN: Darren Piper MD. REFERRING PHYSICIAN: Leonid Palma MD. REASON FOR CONSULTATION: Hypercalcemia, hypernatremia. HISTORY OF PRESENT ILLNESS: Patient is a 74-year-old lady who presents with some bizarre behavior in the emergency room. She is found to have abnormal laboratories. She is giving a rambling thoughts of her problems with her neighbors apparently paranoid delusions and came to the emergency room. ALLERGIES: To sulfa. PRIOR SURGERIES: Include bilateral breast surgery, myomectomy, hysterectomy, leg surgeries. MEDICATIONS: Prior to admission are listed as amlodipine, fluoxetine, Zyprexa, calcitonin. She also says she takes aspirin. It is not clear if she is taking these or at what doses or if there are other medicines not recorded. HABITS: She denies alcohol, smoking, or substance abuse. SYSTEM REVIEW: HEAD, EYES, EARS, NOSE, AND THROAT: She states her vision and hearing is good. ENDOCRINE: She is not aware of any diabetes or thyroid disease. PULMONARY: No asthma or TB. CARDIAC: No angina or CT. There is hypertension. GASTROINTESTINAL: Denies nausea, vomiting, or abdominal pain. GENITOURINARY: Denies dysuria or hematuria. NEUROLOGIC: No CVA. PHYSICAL EXAMINATION: GENERAL: The patient is alert lady, sitting in the emergency room, in no acute distress. VITAL SIGNS: Temperature 98.1, pulse 97, respirations 19, blood pressure 138/71. HEAD, EYES, EARS, NOSE, AND THROAT: Sclerae are nonicteric. Ocular motions intact in all directions. Oral mucosa slightly dry. NECK: No adenopathy or thyroid enlargement. LUNGS: Clear. HEART: Regular rhythm. No murmur. ABDOMEN: Soft without organomegaly or masses. EXTREMITIES: No edema, cyanosis, or clubbing. NEUROLOGIC: She is alert with clear speech. Ocular motions intact in all directions. Smile symmetric. Tongue is midline. She moves all extremities. PERTINENT LABORATORY DATA: On admission, sodium 143, potassium 3.5, BUN 42, creatinine 1.8, calcium 11.6. Total CK is 16. Albumin is 4.8. Repeat sodium 150, potassium 3.1, BUN 32, creatinine 1.3, glucose 157, and the calcium was 10.1. TSH is 2.984. Tox screen is negative. Urinalysis shows 2+ protein, 3+ leukocyte esterase, 2 to 4 red cells, 10 to 15 white cells per high-power field with moderate squamous epithelium. The chest x-ray, no acute process and she had a V/Q lung scan also, no definite pulmonary embolism. IMPRESSION: 1. Hypercalcemia, likely due to medications, possibly vitamin D excess or calcium excess. It is possible she has hyperparathyroidism or occult malignancy as well. 2. Hypernatremia and dehydration. 3. Hypokalemia. 4. Glucose intolerance. 5. Rhabdomyolysis, mild. 6. Psychiatric disorder. 7. Abnormal UA, possible UTI versus contaminated specimen. PLAN: Give the patient vigorous hydration. Observe closely in view of her comorbidities. Try to get further database. We will follow up with a parathyroid hormone level and make further adjustments in her treatment as her condition warrants. Darren Piper M.D. DR: TIFF JOB#: [id number] CC:
[2019-08-12] VITALS (7 sets, daily range): BP systolic 113–149; BP diastolic 67–90
--- NOTE | 2019-08-12 02:30 | Progress Note ---
DATE: 08/11/2019 INTERNAL MEDICINE PROGRESS NOTE SUBJECTIVE: The patient is more directable, little confused. She has not had any specific complaints. PHYSICAL EXAMINATION: VITAL SIGNS: Blood pressure 158/60, heart rate 102, respiratory rate 20, afebrile. Monitored rhythm sinus tachycardia with atrial ectopy. HEENT: Oropharynx with dry mucous membranes. LUNGS: Clear. No tetany. CARDIAC: Regular. Normal S1 and S2. ABDOMEN: Soft. EXTREMITIES: No edema. LABORATORY DATA: Sodium 150, potassium 3.1, bicarb 25, chloride 112, BUN 32, creatinine 1.3, glucose 157, A1c 5.5. Ionized calcium 1.32. IMPRESSION: 1. Dehydration. 2. Hypernatremia. 3. Hypokalemia. 4. Hyperchloremia. 5. Prerenal azotemia. 6. Mild rhabdomyolysis. 7. Hypercalcemia, improved. 8. Possible urinary tract infection. 9. Metabolic encephalopathy. 10. Underlying psychiatric disorder. PLAN: 1. Continue hypotonic IV fluid hydration. 2. Potassium replacement. 3. Psychiatric followup. 4. Continue empiric antimicrobials. 5. Await final urine culture. Leonid Palma M.D. DR: ML JOB#: [id number] CC:
[2019-08-12] MEDS: Potassium Chloride 30 MEQ in 1/2 NS 1000ml 1,000 ML IV SCH ×2 (03:23→11:34)
[2019-08-12 06:58] LABS: BASOPHILS % (AUTO) 0.7 % (0.0-2.0); EOSINOPHILS % (AUTO) 2.4 % (0.0-3.0); HEMATOCRIT 34.1 % (37.0-47.0); MEAN CORPUSCULAR VOLUME 86 FL (80-99); MONOCYTES % (AUTO) 7.1 % (1.0-10.0); NEUTROPHILS % (AUTO) 69.8 % (45.0-75.0); PLATELET COUNT 169 K/UL (150-450); RED BLOOD COUNT 3.95 M/UL (4.20-5.40)
[2019-08-12 07:51] LABS: ALANINE AMINOTRANSFERASE 30 U/L (12-78); ALBUMIN 3.3 G/DL (3.4-5.0); ALBUMIN/GLOBULIN RATIO 1.1 (1.0-2.7); ALKALINE PHOSPHATASE 45 U/L (46-116); ANION GAP 9 mmol/L (5-15); ASPARTATE AMINO TRANSFERASE 29 U/L (15-37); BILIRUBIN,TOTAL 0.7 MG/DL (0.2-1.0); BLOOD UREA NITROGEN 13 mg/dL (7-18); CALCIUM 9.2 MG/DL (8.5-10.1); CARBON DIOXIDE 26 MMOL/L (21-32); CHLORIDE 110 MMOL/L (98-107); CREATININE 0.8 MG/DL (0.55-1.30); PHOSPHORUS 2.4 MG/DL (2.5-4.9); POTASSIUM 3.1 MMOL/L (3.5-5.1); SODIUM 145 MMOL/L (136-145)
[2019-08-12] MEDS: Piperacillin/Tazobactam 3.375 GM in NS 110 ML IVPB SCH (09:44)
--- NOTE | 2019-08-12 11:16 | Nephrology Progress Note ---
Assessment/Plan Problem List: (1) Hypokalemia (2) Hypercalcemia (3) Psychotic disorder (4) Dehydration (5) Acute renal failure Plan pth not suppressed in face of hypercalcemia suggests primary hyperparathyroid, vit D levels pending, kcl ordered, hydration better Subjective Constitutional: Reports: weakness HEENT: Reports: no symptoms Genitourinary: Reports: no symptoms Neurologic/Psychiatric: Reports: no symptoms Objective Objective Last 24 Hour Vital Signs Date Time Temp Pulse Resp B/P (MAP) Pulse Ox O2 Delivery O2 Flow Rate FiO2 08/12/19 08:00 97.8 80 20 113/76 (88) 98 08/12/19 04:00 98.1 90 16 149/90 (109) 96 08/12/19 04:00 60 08/12/19 00:00 96.7 99 16 146/90 (108) 98 08/12/19 00:00 67 08/11/19 21:00 Room Air 08/11/19 20:00 97.1 106 16 157/96 (116) 97 08/11/19 20:00 112 08/11/19 17:47 Room Air 08/11/19 16:18 98.3 98 18 144/85 99 Room Air 08/11/19 16:00 104 08/11/19 14:45 98.0 102 20 158/60 100 Room Air 08/11/19 12:00 98.2 111 20 148/75 100 Room Air Intake and Output 08/11/19 08/12/19 19:00 07:00 Intake Total 110 ml 1670 ml Balance 110 ml 1670 ml Intake Oral 60 ml IV Total 110 ml 1610 ml # Voids 2 3 # Bowel Movements 2 Laboratory Tests 08/12/19 06:15: White Blood Count 7.0, Red Blood Count 3.95L, Hemoglobin 12.0, Hematocrit 34.1L , Mean Corpuscular Volume 86, Mean Corpuscular Hemoglobin 30.4, Mean Corpuscular Hemoglobin Concent 35.2, Red Cell Distribution Width 12.0, Platelet Count 169, Mean Platelet Volume 6.5, Neutrophils (%) (Auto) 69.8, Lymphocytes (% ) (Auto) 20.0, Monocytes (%) (Auto) 7.1, Eosinophils (%) (Auto) 2.4, Basophils ( %) (Auto) 0.7, Sodium Level 145, Potassium Level 3.1L, Chloride Level 110H, Carbon Dioxide Level 26, Anion Gap 9, Blood Urea Nitrogen 13, Creatinine 0.8, Estimat Glomerular Filtration Rate > 60, Glucose Level 103, Calcium Level 9.2, Phosphorus Level 2.4L, Magnesium Level 1.4L, Total Bilirubin 0.7, Aspartate Amino Transf (AST/SGOT) 29, Alanine Aminotransferase (ALT/SGPT) 30, Alkaline Phosphatase 45L, Total Protein 6.2L, Albumin 3.3L, Globulin 2.9, Albumin/ Globulin Ratio 1.1, Carcinoembryonic Antigen [Pending] Height (Feet): 4 Height (Inches): 9.00 Weight (Pounds): 133 General Appearance: no apparent distress, alert EENT: normal ENT inspection Neck: normal alignment Cardiovascular: regular rhythm Respiratory/Chest: lungs clear Abdomen: non tender, soft Extremities: no edema 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
[2019-08-12] MEDS ORDERED: Piperacillin/Tazobactam 3.375 GM in NS 110 ML IVPB SCH (22:00)
[2019-08-12] MEDS: ceFAZolin sod 1 GM in D5W 55 ML IVPB SCH (22:17)
[2019-08-13] VITALS: BP 136/70
--- NOTE | 2019-08-13 01:00 | Progress Note ---
DATE: 08/12/2019 INTERNAL MEDICINE PROGRESS NOTE SUBJECTIVE: The patient occasionally is hallucinating, but is cooperative and directable. PHYSICAL EXAMINATION: VITAL SIGNS: Blood pressure range 113/76 to 157/96, heart rate 60 to 112, respiratory rate 16 to 20, and afebrile. LUNGS: Clear. CARDIAC: Regular. Normal S1, S2 with no murmur. ABDOMEN: Soft and nontender. EXTREMITIES: No edema. LABORATORY DATA: White count 7, hemoglobin 12. Sodium 145, potassium 3.1, magnesium 1.4, phosphorus 2.4. Albumin 3.3. PTH levels and vitamin D levels are pending. IMPRESSION: 1. Metabolic encephalopathy. 2. Bipolar disorder with psychosis. 3. Hypokalemia. 4. Hypernatremia. 5. Dehydration. 6. Hypomagnesemia. 7. Hypophosphatemia. 8. Mild protein-calorie malnutrition. 9. Urinary tract infection with lactobacillus. 10. Hypercalcemia and possible primary hyperparathyroid state. PLAN: Continue hypotonic IV fluid hydration. Replace potassium, magnesium, and phosphorus. Adjust antimicrobial therapy with narrow spectrum now. Psychiatric followup. Await vitamin D and PTH levels. Monitor ionized calcium levels. Disposition will depend on the level of support at home. Leonid Palma M.D. DR: MAXINE JOB#: [id number] CC:
--- NOTE | 2019-08-13 03:45 | Progress Note ---
DATE: 08/12/2019 SUBJECTIVE: I followed patient on . H and P is done; however, has not been transcribed yet. The patient is less confused today, more redirectable. The patient is less agitated. Patient however this morning was volatile and after she heard that she cannot have visitors. Patient refused medication this morning. In addition, she is having tactile hallucination. MENTAL STATUS EXAMINATION: Alert, oriented times self, place. Did not know the date. Mood is anxious. Affect is flat. Thought process is concrete. Thought content, no suicidal or homicidal ideation. Cognition is impaired. Insight and judgment is impaired. ASSESSMENT: 1. Acute metabolic encephalopathy. 2. Anxiety disorder. PLAN: 1. Agree with Prozac and olanzapine. 2. Ativan p.r.n. 3. Continue to follow and readjust the medications. Douglas Dsouza M.D. DR: MAIKEL JOB#: [id number] CC:
[2019-08-13 04:00] VITALS: BP 126/70
[2019-08-13] MEDS: ceFAZolin sod 1 GM in D5W 55 ML IVPB SCH ×3 (06:00→21:19)
[2019-08-13 08:00] VITALS: BP 149/80
[2019-08-13 08:46] LABS: ANION GAP 8 mmol/L (5-15); BLOOD UREA NITROGEN 16 mg/dL (7-18); CALCIUM 9.2 MG/DL (8.5-10.1); CARBON DIOXIDE 28 MMOL/L (21-32); CHLORIDE 110 MMOL/L (98-107); CREATININE 0.8 MG/DL (0.55-1.30); PHOSPHORUS 2.7 MG/DL (2.5-4.9); POTASSIUM 4.6 MMOL/L (3.5-5.1); SODIUM 146 MMOL/L (136-145)
[2019-08-13 12:00] VITALS: BP 154/73
[2019-08-13 16:00] VITALS: BP 144/93
[2019-08-13] MEDS ORDERED: LORazepam 1mg tab ORAL PRN (17:30)
[2019-08-13] MEDS ORDERED: Haloperidol 5mg/ml Inj IM PRN (17:30)
--- NOTE | 2019-08-13 19:05 | Nephrology Progress Note ---
Assessment/Plan Problem List: (1) Hypokalemia (2) Hypercalcemia (3) Psychotic disorder (4) Dehydration (5) Acute renal failure Plan pth not suppressed in face of hypercalcemia suggests primary hyperparathyroid, vit D levels pending, kcl ordered, hydration better Subjective Constitutional: Reports: weakness HEENT: Reports: no symptoms Genitourinary: Reports: no symptoms Neurologic/Psychiatric: Reports: no symptoms Objective Objective Last 24 Hour Vital Signs Date Time Temp Pulse Resp B/P (MAP) Pulse Ox O2 Delivery O2 Flow Rate FiO2 08/13/19 16:00 98.1 69 20 144/93 (110) 97 08/13/19 12:00 98.9 71 20 154/73 (100) 95 08/13/19 09:00 Room Air 08/13/19 08:00 98.8 81 20 149/80 (103) 95 08/13/19 07:44 81 08/13/19 04:00 94 08/13/19 04:00 97.1 86 18 126/70 (88) 96 08/13/19 00:00 96.8 84 16 136/70 (92) 98 08/13/19 00:00 76 08/12/19 21:00 Room Air 08/12/19 20:00 97.8 82 16 141/75 (97) 97 08/12/19 20:00 82 Intake and Output 08/12/19 08/13/19 19:00 07:00 Intake Total 800 ml 200 ml Balance 800 ml 200 ml Intake Oral 800 ml 200 ml # Voids 3 2 Laboratory Tests 08/13/19 06:20: Sodium Level 146H, Potassium Level 4.6, Chloride Level 110H, Carbon Dioxide Level 28, Anion Gap 8, Blood Urea Nitrogen 16, Creatinine 0.8, Estimat Glomerular Filtration Rate > 60, Glucose Level 124H, Calcium Level 9.2, Phosphorus Level 2.7 Height (Feet): 4 Height (Inches): 9.00 Weight (Pounds): 133 General Appearance: no apparent distress, alert EENT: normal ENT inspection Neck: normal alignment Cardiovascular: normal rate, regular rhythm Respiratory/Chest: lungs clear Abdomen: no organomegaly Extremities: no edema 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
[2019-08-13 20:00] VITALS: BP 141/75
--- NOTE | 2019-08-13 22:51 | Psych Consult Progress Note ---
Psychiatry Progress Note Psychiatry Progress Note Subjective the pt is doing better toady less anxious. dec psychotic sxs forgetful Medications Current Medications Medications (Trade) Dose Ordered Sig/John Route PRN Reason Start Time Stop Time Status Last Admin Dose Admin Acetaminophen (Tylenol) 650 mg Q4H PRN ORAL fever/FOWLER/pain 08/13/19 17:30 09/09/19 17:29 Cefazolin Sodium 1 gm/Dextrose 55 ml @ 110 mls/hr Q8HR IVPB 08/13/19 22:00 08/19/19 21:59 08/13/19 21:19 Fluoxetine HCl (PROzac) 20 mg DAILY ORAL 08/14/19 09:00 09/10/19 08:59 Haloperidol Lactate (Haldol) 5 mg Q6H PRN IM Agitation 08/13/19 17:30 09/25/19 17:29 Lorazepam (Ativan) 1 mg Q6H PRN ORAL For Anxiety 08/13/19 17:30 08/18/19 17:29 Olanzapine (ZyPREXA) 5 mg QHS ORAL 08/13/19 21:00 09/24/19 20:59 08/13/19 21:18 Sodium Chloride 1,000 ml @ 100 mls/hr Q10H IV 08/13/19 17:30 09/12/19 16:59 08/13/19 17:30 Allergies: Coded Allergies: SULFA (SULFONAMIDE ANTIBIOTICS) (Unverified Allergy, Unknown, 01/26/19) Uncoded Allergies: sulfa (Allergy, Unknown, [facility], 01/23/19) Pt reports allergies to Sulfa; unable to explain. Pt is confused Objective Data Height (Feet): 4 Height (Inches): 9.00 Weight (Pounds): 133 General Appearance: no apparent distress, alert, alert oriented x3 Appearance: no abnormalities noted Behavior Mannerisms: good eye contact Mental Status Exam - Affect: constricted Mental Status Exam - Mood: anxious Mental Status Exam - Thought P: goal-directed Mental Status Exam - Suicidal: not present Additional Comments: Assessment/Plan Problem List: (1) Psychotic disorder Assessment & Plan: anxiety do ICD Codes: F29 - Unspecified psychosis not due to a substance or known physiological condition SNOMED: 14653601 Assessment/Plan: prozac 20mg po q daily zyprexa 5mg po qhs ativan prn Farhadi,Pantea MD August 13, 2019 22:51
[2019-08-14] VITALS: BP 133/72
--- NOTE | 2019-08-14 00:29 | Progress Note ---
DATE: 08/13/2019 SUBJECTIVE: No new complaints. Occasionally with hallucinations, but directable. PHYSICAL EXAMINATION: VITAL SIGNS: Blood pressure 144/93, pulse 69, respirations 20, afebrile. LUNGS: Clear. CARDIAC: Regular. Normal S1, S2. ABDOMEN: Soft. EXTREMITIES: No edema. LABORATORY DATA: Urine culture with lactobacillus. White count 7, hemoglobin 12. Sodium 146, potassium 4.6, BUN 16, creatinine 0.8. IMPRESSION: 1. Urinary tract infection. 2. Toxic and metabolic encephalopathies. 3. Hypercalcemia, corrected. 4. Hypomagnesemia, status post therapy. 5. Dehydration. 6. Hypernatremia. 7. Hyperchloremia. 8. Affective disorder with psychosis. PLAN: 1. Additional hypotonic hydration. 2. Recheck magnesium antimicrobial discharge planning await results of vitamin D and PTH level. Leonid Palma M.D. DR: NYASIA JOB#: [id number] CC:
[2019-08-14 04:00] VITALS: BP 140/74
[2019-08-14] MEDS: ceFAZolin sod 1 GM in D5W 55 ML IVPB SCH ×3 (05:17→21:40)
[2019-08-14 06:52] LABS: ALANINE AMINOTRANSFERASE 24 U/L (12-78); ALBUMIN 3.1 G/DL (3.4-5.0); ALKALINE PHOSPHATASE 48 U/L (46-116); ANION GAP 9 mmol/L (5-15); ASPARTATE AMINO TRANSFERASE 22 U/L (15-37); BILIRUBIN,TOTAL 0.4 MG/DL (0.2-1.0); BLOOD UREA NITROGEN 12 mg/dL (7-18); CALCIUM 9.8 MG/DL (8.5-10.1); CARBON DIOXIDE 28 MMOL/L (21-32); CHLORIDE 107 MMOL/L (98-107); CREATININE 0.7 MG/DL (0.55-1.30); POTASSIUM 3.9 MMOL/L (3.5-5.1); SODIUM 144 MMOL/L (136-145)
[2019-08-14 08:00] VITALS: BP 138/85
[2019-08-14 11:48] VITALS: BP 146/94
[2019-08-14] MEDS ORDERED: NS 275ml ONE (14:53)
[2019-08-14] MEDS ORDERED: Tubing IV Secondary IV ONE (14:58)
[2019-08-14] MEDS ORDERED: 1/2 NS 1000ml IV ONE (14:58)
[2019-08-14 16:00] VITALS: BP 164/84
--- NOTE | 2019-08-14 19:42 | Nephrology Progress Note ---
Assessment/Plan Problem List: (1) Hypokalemia (2) Hypercalcemia (3) Psychotic disorder (4) Dehydration (5) Acute renal failure Plan pth not suppressed in face of hypercalcemia suggests primary hyperparathyroid, vit D levels pending, kcl ordered, hydration better Subjective Constitutional: Reports: no symptoms HEENT: Reports: no symptoms Genitourinary: Reports: no symptoms Neurologic/Psychiatric: Reports: no symptoms Objective Objective Last 24 Hour Vital Signs Date Time Temp Pulse Resp B/P (MAP) Pulse Ox O2 Delivery O2 Flow Rate FiO2 08/14/19 16:00 98.4 89 18 164/84 (110) 96 08/14/19 11:48 98.8 95 20 146/94 (111) 97 08/14/19 09:00 Room Air 08/14/19 08:00 98.5 89 20 138/85 (102) 96 08/14/19 04:00 98.5 79 16 140/74 (96) 95 08/14/19 00:00 97.8 86 18 133/72 (92) 95 08/13/19 21:00 Room Air 08/13/19 20:00 98.4 69 20 141/75 (97) 99 Intake and Output 08/13/19 08/14/19 19:00 07:00 Intake Total 255 ml Balance 255 ml Intake Oral 200 ml IV Total 55 ml # Voids 3 5 Laboratory Tests 08/14/19 05:10: Sodium Level 144, Potassium Level 3.9, Chloride Level 107, Carbon Dioxide Level 28, Anion Gap 9, Blood Urea Nitrogen 12, Creatinine 0.7, Estimat Glomerular Filtration Rate > 60, Glucose Level 109H, Calcium Level 9.8, Magnesium Level 2.0 , Total Bilirubin 0.4, Aspartate Amino Transf (AST/SGOT) 22, Alanine Aminotransferase (ALT/SGPT) 24, Alkaline Phosphatase 48, Total Protein 6.1L, Albumin 3.1L, Globulin 3.0, Albumin/Globulin Ratio 1.0 Height (Feet): 4 Height (Inches): 9.00 Weight (Pounds): 133 General Appearance: alert EENT: normal ENT inspection Neck: normal alignment Cardiovascular: normal rate, regular rhythm Respiratory/Chest: lungs clear Extremities: non-tender Darren Piper MD August 14, 2019 19:42
[2019-08-14 20:00] VITALS: BP 155/78
--- NOTE | 2019-08-14 23:38 | Psych Consult Progress Note ---
Psychiatry Progress Note Psychiatry Progress Note Medications Current Medications Medications (Trade) Dose Ordered Sig/John Route PRN Reason Start Time Stop Time Status Last Admin Dose Admin Acetaminophen (Tylenol) 650 mg Q4H PRN ORAL fever/FOWLER/pain 08/13/19 17:30 09/09/19 17:29 Cefazolin Sodium 1 gm/Dextrose 55 ml @ 110 mls/hr Q8HR IVPB 08/13/19 22:00 08/19/19 21:59 08/14/19 21:40 Fluoxetine HCl (PROzac) 20 mg DAILY ORAL 08/14/19 09:00 09/10/19 08:59 08/14/19 08:13 Haloperidol Lactate (Haldol) 5 mg Q6H PRN IM Agitation 08/13/19 17:30 09/25/19 17:29 Lorazepam (Ativan) 1 mg Q6H PRN ORAL For Anxiety 08/13/19 17:30 08/18/19 17:29 Olanzapine (ZyPREXA) 5 mg QHS ORAL 08/13/19 21:00 09/24/19 20:59 08/14/19 21:40 Neurological/Psychiatric: Reports: anxiety, depressed, emotional problems Allergies: Coded Allergies: SULFA (SULFONAMIDE ANTIBIOTICS) (Unverified Allergy, Unknown, 01/26/19) Uncoded Allergies: sulfa (Allergy, Unknown, [facility], 01/23/19) Pt reports allergies to Sulfa; unable to explain. Pt is confused Objective Data Height (Feet): 4 Height (Inches): 9.00 Weight (Pounds): 133 Additional Comments: oriented times self, place. Mood is anxious. Affect is flat. Thought process is concrete. Thought content, no suicidal or homicidal ideation. Cognition is impaired. Insight and judgment is impaired. ASSESSMENT: 1. Acute metabolic encephalopathy. 2. Anxiety disorder. PLAN: 1. Agree with Prozac and olanzapine. 2. Ativan p.r.n. 3. Continue to follow and readjust the medications. Assessment/Plan Problem List: (1) Psychotic disorder Assessment & Plan: anxiety do ICD Codes: F29 - Unspecified psychosis not due to a substance or known physiological condition SNOMED: [id number] Assessment/Plan: prozac 20mg po q daily zyprexa 5mg po qhs ativan prn Douglas Dsouza MD August 14, 2019:38
[2019-08-15] VITALS: BP 143/72
--- NOTE | 2019-08-15 02:30 | Progress Note ---
DATE: 08/14/2019 INTERNAL MEDICINE PROGRESS NOTE SUBJECTIVE: No new complaints. Cooperative with care. Taking her medications. PHYSICAL EXAMINATION: Vitals are stable. Exam without change. The patient's friend named, Chaim Singh was contacted, however, I could not reach him. According to prior records, his phone number is [phone] and he is her friend for many years and speaks with her on a regular basis. He confirms the patient has had prior psychiatric admissions and has been in a jail facility in January of last year. The patient insists on living at home alone and despite prior APS report, she has been able to continue doing that in between her hospitalizations. IMPRESSION: 1. Schizoaffective disorder. 2. Dementia. 3. Metabolic encephalopathy. 4. Hypokalemia. 5. Hypercalcemia. 6. Dehydration. 7. Hypovolemia. 8. Acute renal failure. 9. Hypertensive heart disease. PLAN: 1. Off IV fluids. 2. Monitor electrolytes. 3. Encourage fluid intake. 4. Avoid calcitonin. 5. Discharge planning. Leonid Palma M.D. DR: ML JOB#: [id number] CC:
[2019-08-15] MEDS: ceFAZolin sod 1 GM in D5W 55 ML IVPB SCH ×3 (05:54→21:50)
[2019-08-15 07:21] LABS: ANION GAP 8 mmol/L (5-15); BLOOD UREA NITROGEN 13 mg/dL (7-18); CALCIUM 9.8 MG/DL (8.5-10.1); CARBON DIOXIDE 29 MMOL/L (21-32); CHLORIDE 109 MMOL/L (98-107); CREATININE 0.7 MG/DL (0.55-1.30); PHOSPHORUS 3.6 MG/DL (2.5-4.9); POTASSIUM 3.9 MMOL/L (3.5-5.1); SODIUM 146 MMOL/L (136-145)
[2019-08-15 08:00] VITALS: BP 129/79
[2019-08-15 12:00] VITALS: BP 147/85
[2019-08-15 16:00] VITALS: BP 150/85
--- NOTE | 2019-08-15 16:02 | Nephrology Progress Note ---
Assessment/Plan Problem List: (1) Hypokalemia (2) Hypercalcemia (3) Psychotic disorder (4) Dehydration (5) Acute renal failure Plan pth not suppressed in face of hypercalcemia suggests primary hyperparathyroid, vit D levels low kcl ordered, hydration better should have routine f/u Ca monthly Subjective Constitutional: Reports: weakness HEENT: Reports: no symptoms Genitourinary: Reports: no symptoms Neurologic/Psychiatric: Reports: no symptoms Objective Objective Last 24 Hour Vital Signs Date Time Temp Pulse Resp B/P (MAP) Pulse Ox O2 Delivery O2 Flow Rate FiO2 08/15/19 12:00 97.8 94 18 147/85 (105) 95 08/15/19 08:00 Room Air 08/15/19 08:00 98.1 85 18 129/79 (96) 95 08/15/19 00:00 98.2 60 18 143/72 (95) 95 08/14/19 21:00 Room Air 08/14/19 20:00 98.3 65 18 155/78 (103) 96 08/14/19 16:00 98.4 89 18 164/84 (110) 96 Intake and Output 08/14/19 08/15/19 19:00 07:00 Intake Total 300 ml 480 ml Balance 300 ml 480 ml Intake Oral 300 ml 480 ml # Voids 6 5 # Bowel Movements 1 Laboratory Tests 08/15/19 05:55: Sodium Level 146H, Potassium Level 3.9, Chloride Level 109H, Carbon Dioxide Level 29, Anion Gap 8, Blood Urea Nitrogen 13, Creatinine 0.7, Estimat Glomerular Filtration Rate > 60, Glucose Level 105, Calcium Level 9.8, Phosphorus Level 3.6 Height (Feet): 4 Height (Inches): 9.00 Weight (Pounds): 133 General Appearance: no apparent distress, alert, confused EENT: normal ENT inspection Neck: normal alignment Cardiovascular: normal rate Respiratory/Chest: lungs clear Abdomen: non tender, soft 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
[2019-08-15 20:00] VITALS: BP 148/93
[2019-08-16] VITALS: BP 159/84
--- NOTE | 2019-08-16 01:45 | Progress Note ---
DATE: 08/15/2019 SUBJECTIVE: The patient was sitting on the bed. Her TV was loud, gets very agitated and irritable when she was not able to hear. The patient has poor insight. The patient was yelling at some point. She is unable to understand, process, and communicate rationally. The patient also is delusional and has been refusing some medications. MENTAL STATUS EXAMINATION: The patient is alert, oriented to time, self, place. Poor insight into the situation. Mood is agitated. Affect is flat. Thought process is concrete. Thought content, no suicidal or homicidal ideation. Cognition is impaired. Insight and judgment is impaired. ASSESSMENT: [place] I: Dementia. Psychotic disorder. PLAN: 1. Continue Zyprexa. 2. Continue Prozac. 3. Continue the Ativan as needed. 4. The patient lacks capacity to make a decision about placement and recommend SNF placement. Douglas Dsouza M.D. DR: JOSE MARIA JOB#: [id number] CC:
[2019-08-16 01:56] LABS: APPEARANCE,URINE CLEAR; BILIRUBIN, URINE NEGATIVE (NEGATIVE); COLOR,URINE PALE YELLOW; GLUCOSE, URINE (UA) NEGATIVE (NEGATIVE); KETONES,URINE 1+ (NEGATIVE); LEUKOCYTE ESTERASE ,URINE 1+ (NEGATIVE); NITRITE,URINE NEGATIVE (NEGATIVE); PH,URINE 6.5 (4.5-8.0); PROTEIN,URINE NEGATIVE (NEGATIVE); UROBILINOGEN,URINE NORMAL MG/DL (0.0-1.0)
[2019-08-16 04:00] VITALS: BP 153/78
--- NOTE | 2019-08-16 04:15 | Progress Note ---
DATE: 08/15/2019 SUBJECTIVE: The patient wants to go home. She refuses group home facility. She does not have any family support, although her ex- said he will bring her keys to her but will not take her home or ensure followup. PHYSICAL EXAMINATION: VITAL SIGNS: Stable. LUNGS: Clear. CARDIAC: Regular. ABDOMEN: Soft. EXTREMITIES: No edema. No tremor. LABORATORY DATA: Sodium 146, potassium 3.9, bicarb 29, BUN 13, creatinine 0.7. IMPRESSION: 1. Mild dehydration. 2. Probable primary parathyroidism, mild with corrected calcium level now. 3. Affective disorder with psychosis. 4. Metabolic encephalopathy, improved. PLAN: 1. To ensure safe disposition prior to discharge. 2. Awaiting assistance from case packer and discussion with her ex- when he brings her house keys here. 3. We will continue hypotonic IV fluid hydration and encourage oral intake. 4. We will monitor calcium levels as an outpatient. 5. Encourage fluid intake as an outpatient as well. Leonid Palma M.D. DR: ML JOB#: [id number] CC:
[2019-08-16 05:47] LABS: ANION GAP 6 mmol/L (5-15); BLOOD UREA NITROGEN 18 mg/dL (7-18); CALCIUM 9.6 MG/DL (8.5-10.1); CARBON DIOXIDE 28 MMOL/L (21-32); CHLORIDE 108 MMOL/L (98-107); CREATININE 0.8 MG/DL (0.55-1.30); POTASSIUM 3.9 MMOL/L (3.5-5.1); SODIUM 142 MMOL/L (136-145)
[2019-08-16 11:47] VITALS: BP 137/76
--- NOTE | 2019-08-16 13:21 | Nephrology Progress Note ---
Assessment/Plan Problem List: (1) Hypokalemia (2) Hypercalcemia (3) Psychotic disorder (4) Dehydration (5) Acute renal failure Plan pth not suppressed in face of hypercalcemia suggests primary hyperparathyroid, vit D levels low kcl ordered, hydration better should have routine f/u Ca monthly Subjective Constitutional: Reports: weakness HEENT: Reports: no symptoms Genitourinary: Reports: no symptoms Neurologic/Psychiatric: Reports: no symptoms Objective Objective Last 24 Hour Vital Signs Date Time Temp Pulse Resp B/P (MAP) Pulse Ox O2 Delivery O2 Flow Rate FiO2 08/16/19 11:47 98.2 74 19 137/76 (96) 98 08/16/19 09:00 Room Air 08/16/19 04:00 98.1 66 20 153/78 (103) 95 08/16/19 00:00 98.3 90 19 159/84 (109) 96 08/15/19 21:00 Room Air 08/15/19 20:00 97.6 86 20 148/93 (111) 96 08/15/19 16:00 98.5 98 18 150/85 (106) 95 Intake and Output 08/15/19 08/16/19 19:00 07:00 Intake Total 720 ml 100 ml Balance 720 ml 100 ml Intake Oral 720 ml 100 ml # Voids 4 3 Laboratory Tests 08/16/19 01:30: Urine Color Pale yellow, Urine Appearance Clear, Urine pH 6.5, Urine Specific Talent 1.015, Urine Protein Negative, Urine Glucose (UA) Negative, Urine Ketones 1+H, Urine Blood Negative, Urine Nitrite Negative, Urine Bilirubin Negative, Urine Urobilinogen Normal, Urine Leukocyte Esterase 1+H, Urine RBC 0-2 , Urine WBC 0-2, Urine Squamous Epithelial Cells Few, Urine Bacteria None 08/16/19 05:10: Sodium Level 142, Potassium Level 3.9, Chloride Level 108H, Carbon Dioxide Level 28, Anion Gap 6, Blood Urea Nitrogen 18, Creatinine 0.8, Estimat Glomerular Filtration Rate > 60, Glucose Level 102, Calcium Level 9.6, Magnesium Level 1.8 Height (Feet): 4 Height (Inches): 9.00 Weight (Pounds): 133 General Appearance: no apparent distress, alert EENT: normal ENT inspection Neck: normal alignment Cardiovascular: regular rhythm Respiratory/Chest: lungs clear, no respiratory distress Abdomen: soft Extremities: no edema 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
--- NOTE | 2019-08-16 15:44 | Consultation ---
DATE OF CONSULTATION: 08/11/2019 HISTORY OF PRESENT ILLNESS: This is a 74-year-old female with a history of schizophrenia and dementia who has been admitted to the hospital due to psychotic behavior. The patient 00:11 behavior, disoriented, anxious. The patient is currently on [address], easily agitated, 00:27. The patient is requiring redirection. She is unable to understand, process, communicate rationally. Poor insight. PAST PSYCHIATRIC HISTORY: Schizophrenia and dementia. PAST MEDICAL HISTORY: Significant for acute renal failure, rhabdomyolysis, and UTI. ALLERGIES: Sulfa. SUBSTANCE ABUSE HISTORY: No known history of illicit drug use or alcohol. The patient is a poor historian. Urine toxicology is negative. MENTAL STATUS EXAMINATION: The patient is alert, confused, and disoriented. Mood is agitated. Affect is flat. Thought process is concrete. Thought content, no suicidal or homicidal ideation noted. Cognition is impaired. Insight and judgment, impaired. ASSESSMENT: [place] I: 1. Dementia with behavior disturbance. 2. Major depressive disorder. 3. Schizophrenia. PLAN: 1. Continue the Zyprexa that was started by Dr. Palma. 2. Continue Prozac 20 mg. 3. Ativan will be changed to p.o. 4. Haldol IM p.r.n. 5. The patient lacks capacity to leave against medical advice. Needs to be medically cleared. Douglas Dsouza M.D. DR: Rosaline JOB#: [id number] CC:
[2019-08-16 16:00] VITALS: BP 111/67
--- NOTE | 2019-08-16 22:56 | Psych Consult Progress Note ---
Psychiatry Progress Note Psychiatry Progress Note Neurological/Psychiatric: Reports: anxiety, depressed, emotional problems Allergies: Coded Allergies: SULFA (SULFONAMIDE ANTIBIOTICS) (Unverified Allergy, Unknown, 01/26/19) Uncoded Allergies: sulfa (Allergy, Unknown, [facility], 01/23/19) Pt reports allergies to Sulfa; unable to explain. Pt is confused Objective Data Height (Feet): 4 Height (Inches): 9.00 Weight (Pounds): 133 Additional Comments: alert, confused, and disoriented. Mood is agitated. Affect is flat. Thought process is concrete. Thought content, no suicidal or homicidal ideation noted. Cognition is impaired. Insight and judgment, impaired. . Assessment/Plan Problem List: (1) Psychotic disorder Assessment & Plan: anxiety do ICD Codes: F29 - Unspecified psychosis not due to a substance or known physiological condition SNOMED: [id number] Assessment/Plan: prozac 20mg po q daily zyprexa 5mg po qhs ativan Douglas Mccormack MD August 16, 2019 22:56
--- NOTE | 2019-08-17 01:15 | Progress Note ---
DATE: 08/16/2019 INTERNAL MEDICINE PROGRESS NOTE SUBJECTIVE: The patient has no complaints. She is anxious to go home. I made her aware of all her hospital course findings including mildly elevated calcium level probably due to primary hyperparathyroidism. It can be managed medically with increased fluid intake and avoidance of calcium supplement. She was also made aware of her dehydration and hypernatremia, and advised to increase fluid intake. She was also advised of her urinary infection that has now been treated. Outpatient followup was arranged and she was encouraged to seek psychiatric followup with Dr. Dsouza as needed. Full discharge summary to be dictated separately. Leonid Palma M.D. DR: Eusebio JOB#: [id number] CC:
--- NOTE | 2019-08-18 11:52 | Discharge Summary ---
Discharge Summary Discharge Summary _ DATE OF ADMISSION: 08/10/2019 DATE OF DISCHARGE: 08/16/2019 DISCHARGED BY: Dr. Palma REASON FOR ADMISSION: 74 years old female with past medical history of hypertension, depression, psychosis, iatrogenic hypercalcemia, was brought to emergency room by [employer] and paramedics due to be bizarre .behavior. Patient apparently was seen walking outside confused and anxious. She did not have any complaints and denied any problems. She has been known to be a hoarder in her own residence. She was convinced that someone stole her car , leading to her anxiety and anger. Chest x-ray revealed no acute cardiopulmonary pathology. Urinalysis revealed pyuria and few bacteria. Urine toxicology screen was negative. Laboratory work-up revealed leukocytosis WBC 14, stable hemoglobin and hematocrit. Lactic acid 1.6. TSH within normal limits. Albumin stable. Troponin 0.021. CK 616. Calcium 11.6. BUN 42, creatinine 1.8. Potassium 3.5. Patient admitted for further management. CONSULTANTS: trailer technician Dr. Piper psychiatrist HOSPITAL COURSE: Patient admitted to medical surgical floor ,and started on IV hydration and empiric antibiotics. Blood cultures were negative. Urine culture revealed lactobacillus species. Patient competed treatment for UTI while in the hospital. DVT prophylaxis provided. VQ scan revealed no segmental or subsegmental perfusion defects. Unable to assign probability due to lack of availability of aerosol images. However, perfusion images demonstrated no evidence of pulmonary embolism. Renal parameters and electrolytes were closely monitored . Electrolytes corrected as needed: magnesium and potassium were replaced. Nephrotoxins were avoided. Acute kidney injury resolved; prior to discharge BUN 15, 18 creatinine 0.8 PTH was not suppressed in face of hypercalcemia . Per trailer technician patient likely had a primary hyperparathyroidism. Cost Estimator recommended to routinely follow-up with calcium. Prior to discharge calcium level 9.6 . TSH within normal limits Psychiatrist followed. Patient had psychotic disorder and anxiety disorder. Psychiatric medication regimen optimized as per psychiatrist. Cognitive behavioral therapy provided. Prior to discharge patient was made aware of all hospital course findings , including mildly elevated calcium level, likely due to primary hyperparathyroidism, which was corrected. Patient was instructed to increase fluid intake and avoid calcium supplements. Patient also was made aware of dehydration and hypernatremia and was advised to increase fluid intake as well. Hypernatremia resolved. Patient completed treatment for urinary tract infection. Initial leukocytosis resolved. Outpatient follow-up was arranged. Patient was stable for discharge. FINAL DIAGNOSES: Metabolic encephalopathy Acute kidney injury due to dehydration - resolved Hypercalcemia Primary hyperparathyroidism UTI, s/p treatment Metabolic acidosis Psychotic disorder Anxiety disorder Secondary sinus tachycardia -resolved Electrolyte imbalance: hypokalemia, hypomagnesemia DISCHARGE MEDICATIONS: See Medication Reconciliation list. DISCHARGE INSTRUCTIONS: Patient was discharged home. Follow up with a primary care provider in one week. I have been assigned to dictate discharge summary for this account. I was not involved in the patient's management. Luanne Ware NP August 18, 2019 11:52
== END 2019-08-16 15:20 | disposition home or self-care (01) | DRG 682 ==
LOC: EDBD 16:13 → EMR 16:45 → 2E 17:10 → EDBEDREQ 18:00 → 2E 08-11 16:22 → 3E 08-13 17:18
PROC: 30233R1 Transfusion of Nonautologous Platelets into Peripheral Vein, Percutaneous Approach (ICD-10-PCS; principal; 2019-08-15)
DX: N17.9 Acute kidney failure, unspecified (principal); G93.41 Metabolic encephalopathy; M62.82 Rhabdomyolysis; N39.0 Urinary tract infection, site not specified; E87.2 Acidosis; F32.3 Major depressive disorder, single episode, severe with psychotic features; E87.0 Hyperosmolality and hypernatremia; F03.91 Unspecified dementia, unspecified severity, with behavioral disturbance; E44.1 Mild protein-calorie malnutrition; E86.0 Dehydration; R00.0 Tachycardia, unspecified; E87.6 Hypokalemia; Z88.2 Allergy status to sulfonamides; F41.9 Anxiety disorder, unspecified; F20.9 Schizophrenia, unspecified; E87.8 Other disorders of electrolyte and fluid balance, not elsewhere classified; F31.9 Bipolar disorder, unspecified; E21.0 Primary hyperparathyroidism
CPT/HCPCS: 36415; 36600; 71045; 78580; 80048; 80053; 80307; 81003; 82248; 82306; 82330; 82378; 82550; 82803; 83036; 83605; 83735; 83970; 84100; 84439; 84443; 84484; 85025; 85379; 85610; 85730; 87040; 87086; 93005; 96361; 96365; 96375; 99285; J7030; J8499